=== PATIENT | male | born 1945 | race Caucasian/White ===

== ENCOUNTER 2019-09-19 15:35 | Outpatient (CLI) | payer MEDICARE, OTHER, SELFPAY ==
--- NOTE | 2019-10-06 12:58 | ONC FU_ITS ---
Dr. Bourgeois Patient Follow-Up Note Patient: Israel Fields Unit #: [id number]: 1945 Dicatated By: Clifton Bourgeois M.D.Date of Visit:Sep 19, 2019 Onc Med Follow-up/Prog Note Chief Complaint: Anemia/myeloma. History of Present Illness: This is a 73 year-old man with IgA kappa myeloma. I had seen him initially in August 2014. At that time he was mildly anemic with hemoglobin 10.5 g. He had significantly elevated sedimentation rate. He also had chronic kidney disease, and at the time I was concerned about the possibility of myeloma. He was scheduled to have further evaluation, but he ended up being admitted to the hospital with acute pancreatitis. He was transferred to [facility] in [place]. He completed evaluation there, including bone marrow aspiration/biopsy as well as a lung biopsy. At that time it was felt to be asymptomatic, and he was just followed on observation. I had seen him again on 03/23/2016. Review of his lab reports in [facility] revealed a drop in the hemoglobin to 9.7 g in June 2015. By November 2015 it was down to 8.8 g. A more recent CBC, from 03/04/2016, showed his hemoglobin at 8.3 g with white blood cell count 8300 and platelet count 106,000. The red cell indices were slightly macrocytic. Chem profile at that time showed stable renal function with BUN 21 and creatinine 1.5 mg/dL. Serum iron studies show transferrin saturation 34.6% with ferritin elevated at 558 ng/mL. His total protein was elevated at 9.5 g/dL with albumin 3.2 g/dL and calculated serum globulin 6.3 g/dL. Subsequent protein electrophoresis showed an IgA kappa monoclonal protein quantitating at 2.14 g/dL. Beta-2 microglobulin was just mildly elevated at 0.660 mg/dL. Sedimentation rate was greater than 120 mm/hour. Skeletal survey showed numerous lytic foci in the calvarium, but there were no other discrete myelomatous lesions noted. There were degenerative changes in the spine, particularly at C4-C5. He began a course of treatment with Velcade, Revlimid, and dexamethasone, cycle 1 day 1 on 04/28/2016. The Velcade was administered weekly with Revlimid administered on a day schedule. Cycle 2 began on 05/26/2016, and cycle 3 on 06/16/2016. His M protein at that point had declined to 0.63 g/dL compared to baseline 2.38 g/dL. I had seen him for a scheduled visit on 06/23/2016. He was at day 8 of his third cycle. At that time he was having significant abdominal pain, and he was found to have recurrent acute pancreatitis. The illness improved with conservative management. He was then able to continue with his 4th cycle of treatment on 06/30/2016. He began his sixth cycle of treatment on 08/11/2016. His protein electrophoresis at that point showed his IgA kappa M protein stable at 0.60 g/dL and his IgG kappa M protein stable at 0.23 g/dL. A CT angiogram of the chest performed at [facility] on 09/04/2016 showed no evidence of pulmonary embolus or dissection. There was diffuse calcified atherosclerotic coronary artery disease. There was approximately 50-60% stenosis of the left common carotid artery origin and 33% stenosis of the left subclavian artery origin. As of his follow-up visit on 09/08/2016 he had completed 6 cycles of treatment. His serum protein electrophoresis had a normal pattern. There was no monoclonal protein detected by immunofixation electrophoresis. The free light chain assay showed elevated free kappa light chain at 50.85 mg/L with lambda light chain 18.11 mg/L, and the kappa/lambda ratio elevated at 2.81. He continued with cycle 7 of Velcade/Revlimid/dexamethasone. He began his 8 cycles of treatment on 09/29/2016. His protein electrophoresis at that time again showed a normal pattern with no evidence of monoclonal protein. He did proceed with a 9th cycle of treatment on 10/27/2016. His repeat protein electrophoresis on 12/21/2016 showed a normal pattern with no monoclonal protein detected. The free light chain assay did show elevated kappa free light chain at 66.54 mg/L with the kappa/lambda ratio elevated at 2.28. At that point, his treatment was transitioned to maintenance Revlimid at 10 mg daily. On 04/26/2017 he was admitted to the hospital with recurrence of acute pancreatitis, and he was admitted again with acute pancreatitis on 05/10/2017. On both occasions he improved with IV fluids and conservative management. He did stop his treatment at that time. I had then seen him for a followup visit on 06/15/2017. His protein electrophoresis at that time showed no change in the monoclonal protein, and I did have him restart maintenance Revlimid at 10 mg daily. I had seen him for a followup visit on 10/12/2017. He continued to complain of weakness/fatigue and poor appetite. He also complained of having diarrhea. He was just mildly anemic. His protein electrophoresis showed no detectable monoclonal protein. In the absence of any evidence of disease progression, he continued maintenance Revlimid with the dosage reduced to 5 mg daily. On 12/02/2017 he had presented to the [place] emergency room with increasing weakness. His CBC showed hemoglobin down slightly to 10.6 with WBC mildly elevated at 12,000 and platelet count normal at 202,000. His chem profile showed elevated BUN at 29 mg/dL with creatinine stable at 1.06 mg/dL. Amylase and lipase were normal. In the absence of any apparent acute illness he was given IV hydration and discharged home. He was seen here the following day. He had stopped his Revlimid 4 days earlier as he had run out of medication. He was given additional IV hydration. I had him start on 10 mg of prednisone bid, and I advised him to remain off the Revlimid. I had seen him for a followup visit on 04/19/2018. At that point he continued to have fairly marginal performance status. In the absence of any evidence of progression of the myeloma, he was recommended to just continue on observation/expectant management. He has multiple underlying medical illnesses including hypertension, hyperlipidemia, chronic kidney disease, COPD, obstructive sleep apnea, GERD, and degenerative arthritis. He also has anxiety/depression and a history of obsessive-compulsive disorder. He has a [id number] smoking history. He had quit smoking at age 63, but he then started again sometime around March 2016. He is still smoking one pack of cigarettes daily. INTERIM HISTORY: He was lost to follow-up after his visit in March 2018. The reasons for that are unclear. 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 The reported differential considerations included a malignant neoplastic process or chronic infectious process. He underwent surgery in [place]. Those records are not available. He is seen now for a follow-up visit. His indicates that he has been getting weaker and that he has been slowing down. His memory has been getting progressively worse. He has very activity limited. At times it is hard for him to walk. His says that it can take up to 45 minutes or an hour for him to get dressed. His appetite is not good. He has lost weight. He has not had fever. He does have sweating at night. He has shortness of breath. She says his breathing is getting worse. He has constant cough. He is smoking 1 pack of cigarettes daily. He has not been having chest pain. He has been having nausea, and he has diarrhea. His says that he voids constantly. He has been having pain in his lower back and in his hips and legs. At times it is severe enough that he yells out. Medications: Acetaminophen 1 - 2 Tablet (of 325 mg) Oral daily PRN, Anti-Diarrheal 2 Capsule (of 2 mg) Oral daily, Aspirin 1 (325 mg) Tablet Oral daily, D3-1000 2 Tablet (of 25 mcg ) Oral daily, Omeprazole 1 Tablet (of 40 mg) Capsule Delayed Release Oral b.i.d., Potassium 3 Tablet (of 99 mg) Oral daily, Sertraline HCl 1 (100 mg) Tablet Oral daily Allergies: No Known Allergies. Review of Systems: Constitutional - He is getting weaker and he has been slowing down. He has limited activity. At times it is hard for him to walk. His says that it can take up to 45 minutes or an hour for him to get dressed. Appetite is poor. He has lost weight. No fever or chills. He has been having night sweating. ECOG score is 3, ENMT - He has sinus congestion/drainage. No mouth sores. No sore throat or difficulty swallowing, Hematologic/Lymphatic - No abnormal bruising or bleeding, Respiratory - He has shortness of breath. His breathing is getting worse. He coughs a lot. He is smoking 1 pack of cigarettes daily. No pleuritic pain or hemoptysis, Cardiovascular - No angina pain. No palpitations, Gastrointestinal - He has been having nausea, but no vomiting. His acid reflux is managed with omeprazole. He has been having diarrhea. No blood in the stool or black stools, Genitourinary (M) - His says that he urinates constantly. No dysuria or hematuria. No incontinence, Musculoskeletal - He has been having pain in his lower back, hips, and legs. At times it is severe enough that he yells out, Neurologic - No headache. He has dizziness. His memory has been getting progressively worse. He has no numbness/paresthesia or other focal neurologic symptoms, Psychiatric - No anxiety or depression. He has insomnia. Vital Signs: Performed on Sep 19, 2019 15:43 Height - 68.00 in Weight - 132 lbs (LOW) BSA - 1.71 sq.m BMI - 20.07 Temperature - 96.9 F (LOW) Pulse - 88 /min Respiration - 17 /min BP - 120/78 mm(hg) O2 Sat - 97 % Pain - 4 Physical Examination: Constitutional - He appears generally weak and chronically ill, Eyes - Sclerae nonicteric. Conjunctivae clear, ENMT - Mouth is very dry. There are no lesions noted in the oral cavity, Hematologic/Lymphatic - No cervical, clavicular, or axillary adenopathy, Respiratory - Lungs show diminished air movement bilaterally. There are a scattered rales present, more prominent on the left. There is no wheezing, Cardiovascular - Heart rhythm is regular. There is no murmur, gallop or rub noted, Abdomen - Mildly distended. Liver and spleen are not enlarged. There is no abdominal mass or ascites noted. There is no inguinal adenopathy, Extremities - No edema, Neurologic - No focal neurologic deficits noted. Impression: 1. Patient with IgA kappa myeloma. It was felt to be asymptomatic at initial diagnosis in 2014. By February 2016 he had become symptomatic with anemia and 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. 2. He began a course of treatment with Velcade, Revlimid,and dexamethasone on 04/28/2016. 3. He had a hospital admission for acute pancreatitis in September 2014. 4. As of 10/27/2016 he began his 9th cycle of treatment with Velcade/Revlimid/dexamethasone. His repeat protein electrophoresis on 12/21/2016 showed no monoclonal protein, and at that point his treatment was transitioned to maintenance Revlimid 10 mg daily. The dosage was later reduced to 5 mg daily. 5. His treatment was stopped in November 2017 due to declining performance. His other medical illnesses include: 6. Hypertension. 7. Hyperlipidemia. 8. Chronic kidney disease. 9. COPD. 10. Obstructive sleep apnea. 11. GERD. 12. Degenerative arthritis. 13. He has history of obsessive compulsive disorder along with chronic anxiety and depression. He was lost to follow-up after his visit in March 2018. In September 2018 he had evidence of bony destruction of the left mandible. He underwent surgery for it in [facility]. Those records were not made available to me. Since his visit in March 2018 there has been further decline in his performance status. He also has had significant memory loss. It is uncertain to what extent any of his current problems may be related to myeloma and/or anemia. Plan: He will be scheduled for laboratory studies to include CBC, CMP, sed rate, serum iron studies, B12 and folate levels, LDH level, TSH level, SPEP, quantitative immunoglobulin levels, free light chain assay and 24 hr urine protein electrophoresis. He also will be scheduled for a skeletal survey. He will have further evaluation as indicated. In the meantime, he is advised to stop the oral iron supplement. Signed By: Clifton Bourgeois M.D. <<Signature on File>>
== END 2019-09-19 15:36 | disposition home or self-care (01) ==
LOC: STFRANCIS 09-20 14:27
PROVIDERS: Visit Provider Internal Medicine Medical Oncology
DX: C90.00 Multiple myeloma not having achieved remission (principal); I12.9 Hypertensive chronic kidney disease with stage 1 through stage 4 chronic kidney disease, or unspecified chronic kidney disease; E78.5 Hyperlipidemia, unspecified; N18.9 Chronic kidney disease, unspecified; J44.9 Chronic obstructive pulmonary disease, unspecified; G47.33 Obstructive sleep apnea (adult) (pediatric); K21.9 Gastro-esophageal reflux disease without esophagitis; M19.90 Unspecified osteoarthritis, unspecified site; F41.8 Other specified anxiety disorders; F42.9 Obsessive-compulsive disorder, unspecified; F17.210 Nicotine dependence, cigarettes, uncomplicated; D64.9 Anemia, unspecified; R53.83 Other fatigue; M89.8X9 Other specified disorders of bone, unspecified site; Z79.899 Other long term (current) drug therapy
CPT/HCPCS: 99214

== ENCOUNTER 2019-10-09 13:52 | Outpatient (CLI) | payer MEDICARE, OTHER, SELFPAY ==
[2019-10-09] MEDS: sodium chloride 0.9% 250 ML 75 ML IV (14:45)
== END 2019-10-09 13:53 | disposition home or self-care (01) ==
LOC: ONCMED 13:55
PROVIDERS: PCP Nurse Practitioner Family; Visit Provider Internal Medicine Medical Oncology
DX: C90.00 Multiple myeloma not having achieved remission (principal); D64.9 Anemia, unspecified
CPT/HCPCS: 96365; J1439; J7050

== ENCOUNTER 2019-10-16 13:56 | Outpatient (CLI) | payer MEDICARE, OTHER, SELFPAY ==
[2019-10-16] MEDS: sodium chloride 0.9% 250 ML 75 ML IV (15:31)
== END 2019-10-16 13:57 | disposition home or self-care (01) ==
LOC: ONCMED 14:01
PROVIDERS: PCP Nurse Practitioner Family; Visit Provider Internal Medicine Medical Oncology
DX: C90.00 Multiple myeloma not having achieved remission (principal)
CPT/HCPCS: 96365; J1439; J7050

== ENCOUNTER 2019-11-14 06:00 | Outpatient (CLI) | payer MEDICARE, OTHER, SELFPAY ==
--- NOTE | 2019-11-16 12:05 | ONC FU_ITS ---
Dr. Bourgeois Patient Follow-Up Note Patient: Israel Fields Unit #: [id number]: 1945 Dicatated By: Clifton Bourgeois M.D.Date of Visit:Nov 14, 2019 Onc Med Follow-up/Prog Note Chief Complaint: Anemia/myeloma. History of Present Illness: This is a 73 year-old man with IgA kappa myeloma. I had seen him initially in August 2014. At that time he was mildly anemic with hemoglobin 10.5 g. He had significantly elevated sedimentation rate. He also had chronic kidney disease, and at the time I was concerned about the possibility of myeloma. He was scheduled to have further evaluation, but he ended up being admitted to the hospital with acute pancreatitis. He was transferred to [facility] in [place]. He completed evaluation there, including bone marrow aspiration/biopsy as well as a lung biopsy. At that time it was felt to be asymptomatic, and he was just followed on observation. I had seen him again on 03/23/2016. Review of his lab reports in [facility] revealed a drop in the hemoglobin to 9.7 g in June 2015. By November 2015 it was down to 8.8 g. A more recent CBC, from 03/04/2016, showed his hemoglobin at 8.3 g with white blood cell count 8300 and platelet count 106,000. The red cell indices were slightly macrocytic. Chem profile at that time showed stable renal function with BUN 21 and creatinine 1.5 mg/dL. Serum iron studies show transferrin saturation 34.6% with ferritin elevated at 558 ng/mL. His total protein was elevated at 9.5 g/dL with albumin 3.2 g/dL and calculated serum globulin 6.3 g/dL. Subsequent protein electrophoresis showed an IgA kappa monoclonal protein quantitating at 2.14 g/dL. Beta-2 microglobulin was just mildly elevated at 0.660 mg/dL. Sedimentation rate was greater than 120 mm/hour. Skeletal survey showed numerous lytic foci in the calvarium, but there were no other discrete myelomatous lesions noted. There were degenerative changes in the spine, particularly at C4-C5. He began a course of treatment with Velcade, Revlimid, and dexamethasone, cycle 1 day 1 on 04/28/2016. The Velcade was administered weekly with Revlimid administered on a day schedule. Cycle 2 began on 05/26/2016, and cycle 3 on 06/16/2016. His M protein at that point had declined to 0.63 g/dL compared to baseline 2.38 g/dL. I had seen him for a scheduled visit on 06/23/2016. He was at day 8 of his third cycle. At that time he was having significant abdominal pain, and he was found to have recurrent acute pancreatitis. The illness improved with conservative management. He was then able to continue with his 4th cycle of treatment on 06/30/2016. He began his sixth cycle of treatment on 08/11/2016. His protein electrophoresis at that point showed his IgA kappa M protein stable at 0.60 g/dL and his IgG kappa M protein stable at 0.23 g/dL. A CT angiogram of the chest performed at [facility] on 09/04/2016 showed no evidence of pulmonary embolus or dissection. There was diffuse calcified atherosclerotic coronary artery disease. There was approximately 50-60% stenosis of the left common carotid artery origin and 33% stenosis of the left subclavian artery origin. As of his follow-up visit on 09/08/2016 he had completed 6 cycles of treatment. His serum protein electrophoresis had a normal pattern. There was no monoclonal protein detected by immunofixation electrophoresis. The free light chain assay showed elevated free kappa light chain at 50.85 mg/L with lambda light chain 18.11 mg/L, and the kappa/lambda ratio elevated at 2.81. He continued with cycle 7 of Velcade/Revlimid/dexamethasone. He began his 8 cycles of treatment on 09/29/2016. His protein electrophoresis at that time again showed a normal pattern with no evidence of monoclonal protein. He did proceed with a 9th cycle of treatment on 10/27/2016. His repeat protein electrophoresis on 12/21/2016 showed a normal pattern with no monoclonal protein detected. The free light chain assay did show elevated kappa free light chain at 66.54 mg/L with the kappa/lambda ratio elevated at 2.28. At that point, his treatment was transitioned to maintenance Revlimid at 10 mg daily. On 04/26/2017 he was admitted to the hospital with recurrence of acute pancreatitis, and he was admitted again with acute pancreatitis on 05/10/2017. On both occasions he improved with IV fluids and conservative management. He did stop his treatment at that time. I had then seen him for a followup visit on 06/15/2017. His protein electrophoresis at that time showed no change in the monoclonal protein, and I did have him restart maintenance Revlimid at 10 mg daily. I had seen him for a followup visit on 10/12/2017. He continued to complain of weakness/fatigue and poor appetite. He also complained of having diarrhea. He was just mildly anemic. His protein electrophoresis showed no detectable monoclonal protein. In the absence of any evidence of disease progression, he continued maintenance Revlimid with the dosage reduced to 5 mg daily. On 12/02/2017 he had presented to the [place] emergency room with increasing weakness. His CBC showed hemoglobin down slightly to 10.6 with WBC mildly elevated at 12,000 and platelet count normal at 202,000. His chem profile showed elevated BUN at 29 mg/dL with creatinine stable at 1.06 mg/dL. Amylase and lipase were normal. In the absence of any apparent acute illness he was given IV hydration and discharged home. He was seen here the following day. He had stopped his Revlimid 4 days earlier as he had run out of medication. He was given additional IV hydration. I had him start on 10 mg of prednisone bid, and I advised him to remain off the Revlimid. I had seen him for a followup visit on 04/19/2018. At that point he continued to have fairly marginal performance status. In the absence of any evidence of progression of the myeloma, he was recommended to just continue on observation/expectant management. He has multiple underlying medical illnesses including hypertension, hyperlipidemia, chronic kidney disease, COPD, obstructive sleep apnea, GERD, and degenerative arthritis. He also has anxiety/depression and a history of obsessive-compulsive disorder. He has a [id number] smoking history. He had quit smoking at age 63, but he then started again sometime around March 2016. He is still smoking one pack of cigarettes daily. INTERIM HISTORY: He was lost to follow-up after his visit in March 2018. The reasons for that were unclear. 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 The reported differential considerations included a malignant neoplastic process or chronic infectious process. He underwent surgery in [place]. Those records were not available. I had seen him for a follow-up visit on 09/19/2019. He appeared to have had further decline in his performance status, and by that point he was also having significant issues with memory loss. His laboratory studies showed only mild anemia, hemoglobin 11 g. The protein electrophoresis showed 2 monoclonal bands, one quantitating at 1.17 g/dL and the other at 0.62 g/dL. The quantitative immunoglobulin levels were all low with IgG 685 mg/dL, IgA 19 mg/dL, and IgM <5 mg/dL. Sed rate was significantly elevated at 101 mm/hour. B12 level was normal at 387 pg/mL. The serum iron was low at 5 mcg/dL and the ferritin was also low at 4.7 ng/mL, consistent with iron deficiency. I had requested a 24-hour urine protein electrophoresis, but his was never able to get the specimen collected. However, with evidence of iron deficiency, he was given parenteral iron replacement with 2 infusions of Injectafer. He tolerated it without adverse effects. His skeletal survey on 10/03/2017 showed no significant change compared to a prior study from 2018. Multiple small lucent changes predominantly within the calvarium appeared stable. There were degenerative changes in the thoracic and lumbar spine, but there were no lytic lesions noted. He is seen now for a follow-up visit. His main complaint is that the has been having more severe pain in the lower back area. He does get some benefit with the pain medication, but he is having to take it on a regular basis. He has very limited activity, and he is mostly confined to bed or chair. His ECOG score is 3. He has good appetite. He has no fever or night sweats. He is short of breath with activity. He has a cough. He has had some pain in the left rib cage after a recent fall. He otherwise does not have chest pain. He has no GI complaints. He has frequent urination. In addition to the back pain, he also complains that his legs ache. He does not complain of headache. He does have dizziness/lightheadedness, and his 's says that he is also shaky. He does have some difficulty sleeping. Medications: Acetaminophen 1 - 2 Tablet (of 325 mg) Oral daily PRN, Anti-Diarrheal 2 Capsule (of 2 mg) Oral daily, Aspirin 1 (325 mg) Tablet Oral daily, D3-1000 2 Tablet (of 25 mcg ) Oral daily, Omeprazole 1 Tablet (of 40 mg) Capsule Delayed Release Oral b.i.d., Potassium 3 Tablet (of 99 mg) Oral daily, Sertraline HCl 1 (100 mg) Tablet Oral daily Allergies: No Known Allergies. Review of Systems: Constitutional - His energy level is low. 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 His appetite is good, but his weight is down a few pounds from last visit. No fever, chills, hot flashes, or night sweats. ECOG score is 3, ENMT - He has sinus congestion/drainage. No mouth sores. No sore throat or difficulty swallowing, Hematologic/Lymphatic - He bruises easily, Respiratory - He gets short of breath with activity. He has a cough. No pleuritic pain or hemoptysis, Cardiovascular - No angina pain. No palpitations, Gastrointestinal - No nausea or vomiting. No heartburn or acid reflux. No diarrhea or constipation. No blood in the stool or black stools, Genitourinary (M) - No dysuria or hematuria. No urinary frequency. No urgency or incontinence, Musculoskeletal - He has lower back pain which has worsened. He has some rib pain from a recent fall, Integumentary - No skin complications, Neurologic - No headache. He has some dizziness/light headeness. No numbness/paresthesias or other focal neurologic symptoms, Psychiatric - No anxiety or depression. No insomnia. Vital Signs: Performed on Nov 14, 2019 11:37 Height - 68.00 in Weight - 129 lbs (LOW) BSA - 1.70 sq.m BMI - 19.61 Temperature - 97.5 F (LOW) Pulse - 105 /min (HIGH) Respiration - 22 /min BP - 133/88 mm(hg) O2 Sat - 99 % Pain - 9 Physical Examination: Constitutional - He appears generally weak and chronically ill, Eyes - Sclerae nonicteric. Conjunctivae clear, ENMT - Mouth is dry. There are no lesions noted in the oral cavity, Hematologic/Lymphatic - No cervical, clavicular, or axillary adenopathy, Respiratory - Lungs sound clear with diminished air movement bilaterally, Cardiovascular - Heart rhythm is regular. There is no murmur, gallop, or rub noted, Abdomen - Mildly distended but soft. Liver and spleen are not enlarged. There is no abdominal mass or ascites noted. There is no inguinal adenopathy, Extremities - No edema, Neurologic - No focal neurologic deficits noted. Lab/Imaging: Test performed on Nov 13, 2019 15:55 Ferritin 1791 ng/mL % Iron Saturation 37 % Iron, Total 60 mcg/dL TIBC 163 mcg/dL WBC 7.7 10^9/L RBC 3.16 10^12/L HGB 10.8 g/dL HCT 33.7 % MCV 106.6 fl MCH 34.2 pg MCHC 32 g/dL RDW 15.9 % Platelet Count 233 10^9/L MPV 10.5 fL Neutrophils (Gran) 5.22 10^9/L Lymphocytes 1.617 10^9/L Monocytes 0.77 10^9/L Eosinophils 0.077 10^9/L Basophils 0 10^9/L Impression: 1. Patient with IgA kappa myeloma. It was felt to be asymptomatic at initial diagnosis in 2014. By February 2016 he had become symptomatic with anemia and 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. 2. He began a course of treatment with Velcade, Revlimid,and dexamethasone on 04/28/2016. 3. He had a hospital admission for acute pancreatitis in September 2014. 4. As of 10/27/2016 he began his 9th cycle of treatment with Velcade/Revlimid/dexamethasone. His repeat protein electrophoresis on 12/21/2016 showed no monoclonal protein, and at that point his treatment was transitioned to maintenance Revlimid 10 mg daily. The dosage was later reduced to 5 mg daily. 5. His treatment was stopped in November 2017 due to declining performance. His other medical illnesses include: 6. Hypertension. 7. Hyperlipidemia. 8. Chronic kidney disease. 9. COPD. 10. Obstructive sleep apnea. 11. GERD. 12. Degenerative arthritis. 13. He has history of obsessive compulsive disorder along with chronic anxiety and depression. He was lost to follow-up after his visit in March 2018. In September 2018 he had evidence of bony destruction of the left mandible. He underwent surgery for it in [facility]. Those records were not made available to me. Subsequent to his visit in March 2018 there was further decline in his performance status. He also developed significant memory loss. His laboratory studies in August 2019 showed mild anemia, hemoglobin 11 g. His protein electrophoresis showed 2 monoclonal bands, one quantitating at 1.17 g/dL and the other at 0.62 g/dL. The quantitative immunoglobulin levels were all low. He also did have evidence of iron deficiency. He was given parenteral iron replacement with Injectafer, but with no improvement in the anemia. He has since then continued to have significant pain in the lower back area, and he continues have very marginal performance status. His repeat skeletal survey showed no changes compared to a prior study in September 2017. In particular, there were no lytic lesions noted in the thoracic or lumbar spine. At this point it is still uncertain to what extent his myeloma may be symptomatic. Plan: I will request additional laboratory studies including a repeat serum protein electrophoresis, serum free light chain assay, and comprehensive metabolic profile. Depending on the renal function, I will schedule further imaging of the lumbar spine with either CT or MRI, as he would potentially benefit with palliative radiation if he were confirmed to have myelomatous involvement in that area. In the meantime, I will have him start fentanyl 25 mcg/h and he will be given immediate release oxycodone 10 mg up to 4 times daily as needed for pain. He indicates that he is interested in pursuing further treatment for the myeloma, so I will not check on the availability of an oral regimen with lenalidomide, ixazomib, and dexamethasone. Signed By: Clifton Bourgeois M.D. <<Signature on File>>
== END 2019-11-14 06:01 | disposition home or self-care (01) ==
LOC: ONCMED 13:48
PROVIDERS: PCP Nurse Practitioner Family; Visit Provider Internal Medicine Medical Oncology
DX: C90.00 Multiple myeloma not having achieved remission (principal); N18.9 Chronic kidney disease, unspecified; I25.10 Atherosclerotic heart disease of native coronary artery without angina pectoris; I12.9 Hypertensive chronic kidney disease with stage 1 through stage 4 chronic kidney disease, or unspecified chronic kidney disease; E78.5 Hyperlipidemia, unspecified; J44.9 Chronic obstructive pulmonary disease, unspecified; G47.33 Obstructive sleep apnea (adult) (pediatric); K21.9 Gastro-esophageal reflux disease without esophagitis; M19.90 Unspecified osteoarthritis, unspecified site; F42.8 Other obsessive-compulsive disorder; F42.9 Obsessive-compulsive disorder, unspecified; F17.210 Nicotine dependence, cigarettes, uncomplicated; D50.9 Iron deficiency anemia, unspecified; Z79.899 Other long term (current) drug therapy; Z79.891 Long term (current) use of opiate analgesic
CPT/HCPCS: 99214

== ENCOUNTER 2019-12-14 20:18 | Inpatient (IN) | payer MEDICARE, OTHER, SELFPAY ==
[2019-12-14 20:21] VITALS: BP 140/80; PULSE 85; RESP 18; TEMP 36.6; O2SAT 96; BMI 21.1
--- NOTE | 2019-12-14 20:25 | XR_ITS ---
WS: [id number] PORTABLE CHEST HISTORY: cough COMPARISON: 04/28/2016 Mild volume loss in the LEFT lung is new. Increased interstitial thickening is coarsened throughout t he LEFT lung. Mild fibrotic changes in the periphery of the RIGHT upper lobe. No focal pneumonia. No pleural effusion or pneumothorax. Cardiac size: Normal. Mediastinum/Aorta: Ectatic thoracic aorta. Partial calcification of the arch. Degenerative changes at the glenohumeral joints and AC joints. XR/XR chest 1V portable [id number] IMPRESSION: 1. Volume loss and changes of pulmonary fibrosis throughout the LEFT lung and at the RIGHT apex. 2. No pneumonia. 3. Partially calcified aorta.
[2019-12-14] MEDS: sodium chloride 0.9% 1,000 ML 999 ML IV (20:40)
[2019-12-14 20:58] LABS: Ketone (Acetest) Serum Negative (Negative)
[2019-12-14 21:00] LABS: Basophils % 0.2 %; Eosinophils # 0.1 10^3/uL (0.0-0.8); Eosinophils % 1.5 %; Hematocrit 30.9 % (42.0-52.0); Hemoglobin 9.5 g/dL (11.7-16.6); Lymphocytes # 1.3 10^3/uL (0.8-4.8); Lymphocytes % 21.4 %; Mean Corpuscular HGB Conc 30.7 g/dL (30.0-36.0); Mean Corpuscular Hemoglobin 34.7 pg (28.0-34.0); Mean Corpuscular Volume 112.8 fL (80-94); Mean Platelet Volume 10.8 fL (7.4-10.4); Monocytes # 0.7 10^3/uL (0.2-0.9); Monocytes % 11.4 %; Neutrophils % 65.2 %; Nucleated Red Blood Cells % 0 %; Platelet Count 187 10^3/cmm (130-400); Red Blood Count 2.74 10^6/uL (4.1-5.3); Red Cell Distribution Width 15.2 % (12.1-15.1); White Blood Count 6.1 10^3/uL (4.0-10.0)
--- NOTE | 2019-12-14 21:05 | W.ED.GENADLT ---
HPI - General Adult General: Chief complaint: General Medical Stated complaint: CNACER/ ALHEIMERS Time Seen by Provider: 12/14/19 20:21 History of Present Illness: HPI narrative: Israel is a 74-year-old male who comes in via EMS with report of not eating or drinking for the last week. His was concerned that he was dehydrated and called EMS to have him brought in for evaluation. The patient has dementia and states that he does not know why he is here. He states he feels fine. He denies any pain. When asked if he wanted something to eat and drink he said yes we offered him a sandwich and he accepted. The patient does seem to be somewhat confused. He does not appear to be in any distress or any pain. Review of Systems General: Reports: ROS unobtainable due to mental status (See HPI) PFS ED PFSH: Medical History Alzheimer disease Multiple myeloma Social History Smoking and tobacco status: current every day smoker Physical Exam Const: COMMON NORMALS: no apparent distress, no limitations, healthy appearing and well nourished EXAM LIMITATIONS: no altered mental status GENERAL APPEARANCE: cooperative, well kempt and well developed ORIENTATION/CONSCIOUSNESS: Yes awake HENMT: COMMON NORMALS: normocephalic, head/scalp atraumatic, hearing grossly normal bilaterally, external ears normal, EAC's normal, external nose normal and moist oral mucous membranes HEAD & SCALP: normal to inspection, normocephalic and atraumatic FACE & SINUS: normal facial exam and face symmetric NOSE: external nose normal and nares normal EXTERNAL EAR: Yes external ears normal EXTERNAL AUDITORY CANAL: EAC's normal MOUTH: oral and palatal mucosa normal and tongue normal Eye: COMMON NORMALS: PERRL, EOMs intact bilaterally, conjunctivae normal and no scleral icterus GENERAL EYE: normal appearance of both eyes and normal light reflex CONJUNCTIVA: Yes conjunctivae normal SCLERA: sclerae normal CORNEA: Yes corneas normal PUPIL: Yes PERRL DIRECT OPHTHALMOSCOPY: Yes normal light reflex Neck/C-Spine: COMMON NORMALS: full ROM, no lymphadenopathy, supple, no meningeal signs and no JVD GENERAL: Yes normal visual inspection and Yes trachea midline CERVICAL SPINE: Yes cervical ROM normal Chest: COMMONS NORMALS: inspection of chest normal and palpation of chest normal Resp: COMMON NORMALS: normal respiratory effort, no retractions, no use of accessory muscles and clear to auscultation bilaterally EFFORT & INSPECTION: Yes able to speak in complete sentences AUSCULTATION: clear to auscultation bilaterally Cardio: COMMON NORMALS: no JVD, regular rate, regular rhythm, S1 normal heart sound, S2 normal heart sound, no gallops, no clicks, no murmurs and no rub JUGULAR VENOUS DISTENTION: no JVD RATE: regular rate RHYTHM: regular rhythm HEART SOUNDS: S1 normal and S2 normal GI: COMMON NORMALS: soft to palpation, non-tender, no hepatosplenomegaly and no masses INSPECTION: Yes normal to inspection PALPATION: Yes soft and Yes no hepatosplenomegaly : COMMON NORMALS: Yes no CVA tenderness BLADDER/KIDNEY EXAM: Yes no CVA tenderness Back/Pelvis: COMMON NORMALS: no CVA tenderness, thoracic and lumbar spine normal to inspection, no thoracic nor lumbar tenderness and thoraco-lumbar ROM normal Extremity: COMMON NORMALS: normal to inspection, full ROM, normal capillary refill, no joint enlargement, no clubbing, cyanosis or edema and no calf tenderness Neuro: COMMON NORMALS: CN's II-XII intact bilaterally, moves all extremities, no focal motor deficits and no sensory deficits noted MENINGEAL SIGNS: Yes no meningeal signs Psych: COMMON NORMALS: mental status grossly normal, thought process normal, cooperative, affect normal, speech normal and activity/motor behavior normal APPEARANCE: Yes well kempt SPEECH: Yes normal speech THOUGHT PROCESS: normal thought process Skin: COMMON NORMALS: no rashes or lesions noted, skin turgor normal, no jaundice, no petechiae and no mottling GENERAL SKIN EXAM: no rashes or lesions noted and turgor normal Course Vital Signs: Vital signs: Vital Signs Temperature 97.8 F 12/14/19 20:21 Pulse Rate 78 12/14/19 21:40 Respiratory Rate 18 12/14/19 20:21 Blood Pressure 115/72 12/14/19 21:40 Pulse Oximetry 96 12/14/19 20:21 MDM - General Adult MDM Narrative: Medical decision making narrative: Patient has eaten and had something to drink here. He does not have any pain. I reviewed the case with Dr. Bourgeois who thinks the patient should be admitted for further hydration. He will see the patient in consult. I reviewed the case in full with Dr. Castro and he is agreeable to admission as well. Patient's chest x-ray has been covered for any possible pneumonia and I will add a head CT as the patient has a history of lytic lesions from his multiple myeloma. Further care will be dictated by Dr. Castro. Lab Data: Attestation: I reviewed the patient's lab results. Labs: Lab Results 12/14/19 12/14/19 12/14/19 Range/Units 20:33 20:33 20:33 WBC 6.1 (4.0-10.0) 10^3/ uL RBC 2.74 L (4.1-5.3) 10^6/u L Hgb 9.5 L (11.7-16.6) g/dL Hct 30.9 L (42.0-52.0) % MCV 112.8 H (80-94) fL MCH 34.7 H (28.0-34.0) pg MCHC 30.7 (30.0-36.0) g/dL RDW 15.2 H (12.1-15.1) % Plt Count 187 (130-400) 10^3/c mm MPV 10.8 H (7.4-10.4) fL Neut % (Auto) 65.2 % Lymph % (Auto) 21.4 % Ferry % (Auto) 11.4 % Eos % (Auto) 1.5 % Baso % (Auto) 0.2 % Neut # (Auto) 4.0 (1.8-7.7) 10^3/u L Lymph # (Auto) 1.3 (0.8-4.8) 10^3/u L Ferry # (Auto) 0.7 (0.2-0.9) 10^3/u L Eos # (Auto) 0.1 (0.0-0.8) 10^3/u L Baso # (Auto) 0.0 (0.0-0.1) 10^3/u L Nucleated RBC % (a uto) 0 % Nucleated RBCs # 0.0 /100WBC Sodium 136 (136-145) mmol/L Potassium 4.1 (3.5-5.1) mmol/L Chloride 102 (98-107) mmol/L Carbon Dioxide 18 L (22-29) mmol/L Anion Gap 20.1 H (5-19) BUN 34 H (8-23) mg/dL Creatinine 1.1 (0.7-1.2) mg/dL Glucose 97 (65-115) mg/dL Calculated Osmolal ity 279 L (285-295) mOsm/k g Lactic Acid 0.7 (0.5-2.2) mmol/L Calcium 9.5 (8.5-10.5) mg/dL Magnesium 1.8 (1.7-2.3) mg/dL Total Bilirubin 0.3 (0.15-1.2) mg/dL AST 24 (0-40) U/L ALT 15 (0-41) U/L Alkaline Phosphata se 104 (40-130) IU/L Troponin T Baselin e (0-15) ng/mL Troponin T 120 Min [place] (0-15) ng/mL Delta Troponin T (0-10) ABS# Total Protein 7.5 (6.6-8.7) g/dL Albumin 3.2 L (3.5-5.2) g/dL Globulin 4.3 (1.3-4.6) g/dL Lipase 45 (13-60) U/L Urine Color (Yellow) Urine Appearance (CLEAR) Urine pH (5-7) Ur Specific Gravit y (1.005-1.030) Urine Protein (Negative) Urine Glucose (UA) (Normal) Urine Ketones (Negative) Urine Blood (Negative) Urine Nitrate (Negative) Urine Bilirubin (NEGATIVE) Urine Urobilinogen (Negative) mg/dL Ur Leukocyte Leah ase (Negative) Urine RBC (0-2) /hpf Urine WBC (0-5) /hpf Ur Squamous Epith Cells (0-5) Urine Bacteria (NONE) Urine Mucus Serum Ketones (Negative) 12/14/19 12/14/19 12/14/19 Range/Units 20:33 20:33 21:55 WBC (4.0-10.0) 10^3/ uL RBC (4.1-5.3) 10^6/u L Hgb (11.7-16.6) g/dL Hct (42.0-52.0) % MCV (80-94) fL MCH (28.0-34.0) pg MCHC (30.0-36.0) g/dL RDW (12.1-15.1) % Plt Count (130-400) 10^3/c mm MPV (7.4-10.4) fL Neut % (Auto) % Lymph % (Auto) % [place] % (Auto) % Eos % (Auto) % Baso % (Auto) % Neut # (Auto) (1.8-7.7) 10^3/u L Lymph # (Auto) (0.8-4.8) 10^3/u L [place] # (Auto) (0.2-0.9) 10^3/u L Eos # (Auto) (0.0-0.8) 10^3/u L Baso # (Auto) (0.0-0.1) 10^3/u L Nucleated RBC % (a uto) % Nucleated RBCs # /100WBC Sodium (136-145) mmol/L Potassium (3.5-5.1) mmol/L Chloride (98-107) mmol/L Carbon Dioxide (22-29) mmol/L Anion Gap (5-19) BUN (8-23) mg/dL Creatinine (0.7-1.2) mg/dL Glucose (65-115) mg/dL Calculated Osmolal ity (285-295) mOsm/k g Lactic Acid (0.5-2.2) mmol/L Calcium (8.5-10.5) mg/dL Magnesium (1.7-2.3) mg/dL Total Bilirubin (0.15-1.2) mg/dL AST (0-40) U/L ALT (0-41) U/L Alkaline Phosphata se (40-130) IU/L Troponin T Baselin e 61 H (0-15) ng/mL Troponin T 120 Min [place] (0-15) ng/mL Delta Troponin T (0-10) ABS# Total Protein (6.6-8.7) g/dL Albumin (3.5-5.2) g/dL Globulin (1.3-4.6) g/dL Lipase (13-60) U/L Urine Color Yellow (Yellow) Urine Appearance Clear (CLEAR) Urine pH 5 (5-7) Ur Specific Gravit y 1.020 (1.005-1.030) Urine Protein Neg (Negative) Urine Glucose (UA) Norm (Normal) Urine Ketones Negative (Negative) Urine Blood Neg (Negative) Urine Nitrate Negative (Negative) Urine Bilirubin Neg (NEGATIVE) Urine Urobilinogen Norm (Negative) mg/dL Ur Leukocyte [place] ase Negative (Negative) Urine RBC Rare (0-2) /hpf Urine WBC Rare (0-5) /hpf Ur Squamous Epith Cells Rare (0-5) Urine Bacteria 1+ H (NONE) Urine Mucus 1+ Serum Ketones Negative (Negative) 12/14/19 Range/Units 22:36 WBC (4.0-10.0) 10^3/ uL RBC (4.1-5.3) 10^6/u L Hgb (11.7-16.6) g/dL Hct (42.0-52.0) % MCV (80-94) fL MCH (28.0-34.0) pg MCHC (30.0-36.0) g/dL RDW (12.1-15.1) % Plt Count (130-400) 10^3/c mm MPV (7.4-10.4) fL Neut % (Auto) % Lymph % (Auto) % [place] % (Auto) % Eos % (Auto) % Baso % (Auto) % Neut # (Auto) (1.8-7.7) 10^3/u L Lymph # (Auto) (0.8-4.8) 10^3/u L [place] # (Auto) (0.2-0.9) 10^3/u L Eos # (Auto) (0.0-0.8) 10^3/u L Baso # (Auto) (0.0-0.1) 10^3/u L Nucleated RBC % (a uto) % Nucleated RBCs # /100WBC Sodium (136-145) mmol/L Potassium (3.5-5.1) mmol/L Chloride (98-107) mmol/L Carbon Dioxide (22-29) mmol/L Anion Gap (5-19) BUN (8-23) mg/dL Creatinine (0.7-1.2) mg/dL Glucose (65-115) mg/dL Calculated Osmolal ity (285-295) mOsm/k g Lactic Acid (0.5-2.2) mmol/L Calcium (8.5-10.5) mg/dL Magnesium (1.7-2.3) mg/dL Total Bilirubin (0.15-1.2) mg/dL AST (0-40) U/L ALT (0-41) U/L Alkaline Phosphata se (40-130) IU/L Troponin T Baselin e (0-15) ng/mL Troponin T 120 Min [place] 58.28 H (0-15) ng/mL Delta Troponin T -2.72 L (0-10) ABS# Total Protein (6.6-8.7) g/dL Albumin (3.5-5.2) g/dL Globulin (1.3-4.6) g/dL Lipase (13-60) U/L Urine Color (Yellow) Urine Appearance (CLEAR) Urine pH (5-7) Ur Specific Gravit y (1.005-1.030) Urine Protein (Negative) Urine Glucose (UA) (Normal) Urine Ketones (Negative) Urine Blood (Negative) Urine Nitrate (Negative) Urine Bilirubin (NEGATIVE) Urine Urobilinogen (Negative) mg/dL Ur Leukocyte Leah ase (Negative) Urine RBC (0-2) /hpf Urine WBC (0-5) /hpf Ur Squamous Epith Cells (0-5) Urine Bacteria (NONE) Urine Mucus Serum Ketones (Negative) Imaging Data^: CXR: My impression: Rotation but with questionable infiltrate left lung. EKG Data^: EKG 1: Attestation: I personally reviewed and interpreted this EKG as follows: EKG interpretation date: 12/14/19 EKG interpretation time: 21:13 Interpretation: Normal sinus rhythm at 82 beats a minute, significant baseline artifact, no acute ST or T wave changes. EKG 2: Attestation: I personally reviewed and interpreted this EKG as follows: EKG interpretation date: 12/14/19 EKG interpretation time: 22:42 Interpretation: Normal sinus rhythm at 75 beats a minute, no acute ST-T wave changes. Discharge Plan Discharge Patient Disposition: Placed in Observation Clinical Impression: Acute dehydration Multiple myeloma Qualifiers: Multiple myeloma remission status: not in remission Qualified Code(s): C90.00 - Multiple myeloma not having achieved remission Coding Level of Care Code ED Therapeutic Activities Services Worker for g Fwd Exam Comprehensive
[2019-12-14 21:12] LABS: Alanine Aminotransferase 15 U/L (0-41); Albumin Level 3.2 g/dL (3.5-5.2); Alkaline Phosphatase 104 IU/L (40-130); Anion Gap 20.1 (5-19); Aspartate Amino Transferase 24 U/L (0-40); Blood Urea Nitrogen 34 mg/dL (8-23); Calcium 9.5 mg/dL (8.5-10.5); Carbon Dioxide 18 mmol/L (22-29); Chloride 102 mmol/L (98-107); Globulin 4.3 g/dL (1.3-4.6); Glucose 97 mg/dL (65-115); Lipase 45 U/L (13-60); Magnesium 1.8 mg/dL (1.7-2.3); Osmolality Calculated 279 mOsm/kg (285-295); Potassium 4.1 mmol/L (3.5-5.1); Sodium 136 mmol/L (136-145); Total Bilirubin 0.3 mg/dL (0.15-1.2); Total Protein 7.5 g/dL (6.6-8.7)
[2019-12-14 21:13] LABS: Lactic Sepsis W/Reflex 0.7 mmol/L (0.5-2.2)
[2019-12-14 21:14] LABS: Troponin(5th) Baseline 61 ng/mL (0-15)
[2019-12-14] MEDS: sodium chloride 0.9% 1,000 ML 100 ML IV (21:30)
[2019-12-14 21:40] VITALS: BP 115/72; BP 120/61; BP 124/69; PULSE 78; PULSE 82; PULSE 90
--- NOTE | 2019-12-14 22:25 | ECG_ITS ---
Measurements Intervals [place] Rate: 75 P: 17 AK: 150 QRS: -30 QRSD: 98 T: 31 QT: 402 QTc: 451 SINUS RHYTHM WITH OCCASIONAL SUPRAVENTRICULAR PREMATURE COMPLEXES POSSIBLE ANTERIOR MYOCARDIAL INFARCTION , OF INDETERMINATE AGE [30 ms Q WAVE IN V3/V4, OR R < 0.2 mV IN V4] Compared to ECG 02/01/2017 23:39:52 Myocardial infarct finding now present ST (T wave) deviation no longer present Electronically Signed On 12-15-2019 18:26:21 CDT by Sravani Galvez M.D. [email or web address]
--- NOTE | 2019-12-14 22:38 | PC.NURSE ---
EKG done at 2235 and shown to ER doctor
--- NOTE | 2019-12-14 22:42 | CTR_ITS ---
PROCEDURE INFORMATION: Exam: CT Head Without Contrast Exam date and time: 12/14/2019 10:46 PM Age: 74 years old Clinical indication: Altered mental status/memory loss; Age related cognitive decline; Additional info: Cuevas/ams TECHNIQUE: Imaging protocol: Computed tomography of the head without contrast. Total DLP: 778.47 mGy-cm Radiation optimization: All CT scans at this facility use at least one of these dose optimization techniques: automated exposure control; mA and/or kV adjustment per patient size (includes targeted exams where dose is matched to clinical indication); or iterative reconstruction. COMPARISON: No relevant prior studies available. FINDINGS: Brain: No visible evidence of active or acute intracranial pathologic process. Advanced small vessel ischemic disease with senile periventricular leukomalacia. Cerebral and cerebellar atrophy with ventricular dilatation greater than that anticipated for patient's chronological age. No visible intracranial hemorrhage. Bones/joints: Unremarkable. No acute fracture. Sinuses: Visualized sinuses are unremarkable. No fluid levels. Mastoid air cells: Visualized mastoid air cells are well aerated. Soft tissues: Unremarkable. CT/CT head wo con* [id number] IMPRESSION: 1. No visible evidence for active or acute intracranial pathologic process. 2. Age-related findings. Radiation Dose CTDIVOL = (mGy): DLP = 778.47 (mGy-cm)
[2019-12-14 22:44] LABS: Bacteria Urine 1+; Bilirubin Urine Neg (NEGATIVE); Blood Urine Neg (Negative); Glucose Urine UA Norm (Normal); Ketones Urine Negative (Negative); Leukocyte Esterase Urine Negative (Negative); Mucus Urine 1+; Nitrate Urine Negative (Negative); Protein Urine Neg (Negative); RBC Urine RARE /hpf (0-2); Squamous Epithelial Cell Urine RARE (0-5); Urine Appearance Clear (CLEAR); Urine Color Yellow (Yellow); Urobilinogen Urine Norm (Negative); WBC Urine RARE /hpf (0-5); pH Urine 5 (5-7)
[2019-12-14 23:03] LABS: Troponin 5 2HR 58.28 ng/mL (0-15)
[2019-12-14 23:05] LABS: Troponin 5 2HR Delta -2.72 ABS# (0-10)
[2019-12-14] MEDS: piperacillin-tazobactam 3.375 GM in sodium chloride 0.9% (plus) 50 ML IV (23:12)
--- NOTE | 2019-12-14 23:40 | CTR_ITS ---
PROCEDURE INFORMATION: Exam: CT Lumbar Spine Without Contrast Exam date and time: 12/14/2019 11:55 PM Age: 74 years old Clinical indication: Low back pain TECHNIQUE: Imaging protocol: Computed tomography images of the lumbar spine without contrast. Total DLP: 1955.66 mGy-cm Radiation optimization: All CT scans at this facility use at least one of these dose optimization techniques: automated exposure control; mA and/or kV adjustment per patient size (includes targeted exams where dose is matched to clinical indication); or iterative reconstruction. COMPARISON: No relevant prior studies available. FINDINGS: Vertebrae: Marked compression of L2 vertebral body is suspected to be either acute or subacute. There is mild retropulsion. Grade 1 spondylolisthesis of L4 on L5 is noted due to facet arthrosis. Spinal canal narrowing also suggested at L4-L5. Discs/Spinal canal/Neural foramina: Bilateral neural foraminal narrowing at L4-L5 and right-sided narrowing suggested L2-L3. Kidneys and ureters: Atrophic or hypoplastic left kidney. 1.6 cm cyst also suggested at left kidney not requiring specific follow-up. Soft tissues: Unremarkable. CT/CT lumbar spine wo con* [id number] IMPRESSION: Marked compression fracture of L2 favored to be either acute or subacute. Additional details as above. Radiation Dose CTDIVOL = (mGy): DLP = 1955.66 (mGy-cm)
--- NOTE | 2019-12-14 23:40 | CTR_ITS ---
PROCEDURE INFORMATION: Exam: CT Cervical Spine Without Contrast Exam date and time: 12/14/2019 11:55 PM Age: 74 years old Clinical indication: Neck pain TECHNIQUE: Imaging protocol: Computed tomography images of the cervical spine without contrast. Total DLP: 568.54 mGy-cm Radiation optimization: All CT scans at this facility use at least one of these dose optimization techniques: automated exposure control; mA and/or kV adjustment per patient size (includes targeted exams where dose is matched to clinical indication); or iterative reconstruction. COMPARISON: CT neck w con* [id number] 10/13/2018 9:00 AM FINDINGS: Vertebrae: No visible acute osseous abnormality. No visible fracture, subluxation, or dislocation. Discs/Spinal canal/Neural foramina: Advanced degenerative disease and degenerative disc disease with disc space height loss and marked spondylosis deformans C4/C5, C5/C6, and C6/C7. Reversal of the normal cervical lordosis. Osteoporosis. Facet arthrosis. Levoscoliosis. Multilevel neural foraminal stenosis. Moderate spinal stenosis C5/C6 due to a posterior osteophyte disc complex. Milder central canal stenosis C4/C5 and C6/C7. Other bones/joints: Compression plate and screw fixation device left mandible. Evidence of a previous left neck dissection. Lungs: Peripheral acinar emphysema lung apices with associated parenchymal scarring. CT/CT cervical spin wo con* [id number] IMPRESSION: 1. Nonacute. 2. Advanced degenerative disease and degenerative disc disease with spondylosis deformans, facet arthrosis, neural foraminal stenosis, and central canal stenosis as detailed in text above. Radiation Dose CTDIVOL = (mGy): DLP = 568.54 (mGy-cm)
--- NOTE | 2019-12-14 23:40 | CTR_ITS ---
PROCEDURE INFORMATION: Exam: CT Chest With Contrast Exam date and time: 12/14/2019 11:48 PM Age: 74 years old Clinical indication: Shortness of breath; Additional info: SOB TECHNIQUE: Imaging protocol: Computed tomography of the chest with intravenous contrast. Total DLP: 787.79 mGy-cm Radiation optimization: All CT scans at this facility use at least one of these dose optimization techniques: automated exposure control; mA and/or kV adjustment per patient size (includes targeted exams where dose is matched to clinical indication); or iterative reconstruction. Contrast material: OMNI 300; Contrast volume: 95 ml; Contrast route: 20G; COMPARISON: CT chest wo con [id number] 11/29/2015 9:37 AM FINDINGS: Lungs: Extensive chronic lung disease. Pulmonary fibrosis. Peripheral acinar emphysema. Posterior basal segment right lower lobe tubular bronchiectasis. Bilateral apical scarring, left greater right. Pleural space: Unremarkable. No pneumothorax. No pleural effusion. Heart: Advanced 3 vessel coronary artery disease. Aorta: The thoracic aorta is nonaneurysmal with moderate arterial sclerotic disease. Lymph nodes: No visible mediastinal or hilar lymphadenopathy. Evidence of antecedent granulomatous disease with calcified hilar complexes. Kidneys and ureters: Limited assessment of the upper abdomen reveals and atrophic left kidney with simple cortical cyst. Calcified splenic granulomas. Liver unremarkable. Gallbladder contains a tiny gallstone. Adrenal glands unremarkable. Right kidney unremarkable as imaged. Pancreas unremarkable for age. Hollow viscus within the field of view unremarkable. Bones/joints: Advanced degenerative disease and degenerative disc disease of spine without osteoporosis. Old compression wedge deformities T5 and L2. Soft tissues: Unremarkable for age. CT/CT chest w con* [id number] IMPRESSION: 1. Extensive chronic lung disease as detailed in text above. 2. Advanced 3 vessel coronary disease. COMMENTS: Consistent with the [place] [employer]'s Incidental Findings Committee white paper (J Am Rodolfo Radiol 2018): Any incidental cystic renal lesion classified in this report as too small to characterize or simple appearing is likely a benign cyst. No follow-up imaging is recommended for these lesions per consensus recommendations based on imaging criteria. Radiation Dose CTDIVOL = (mGy): DLP = 787.79 (mGy-cm)
--- NOTE | 2019-12-14 23:40 | CTR_ITS ---
PROCEDURE INFORMATION: Exam: CT Thoracic Spine Without Contrast Exam date and time: 12/14/2019 11:55 PM Age: 74 years old Clinical indication: Pain in thoracic spine; Additional info: SOB TECHNIQUE: Imaging protocol: Computed tomography images of the thoracic spine without contrast. Total DLP: 1728.03 mGy-cm Radiation optimization: All CT scans at this facility use at least one of these dose optimization techniques: automated exposure control; mA and/or kV adjustment per patient size (includes targeted exams where dose is matched to clinical indication); or iterative reconstruction. COMPARISON: No relevant prior studies available. FINDINGS: Vertebrae: There is moderate compression of the T5 vertebral body. A fracture of the tip of the spinous process of T5 is noted as well. There is severe compression of the L2 vertebral body partially visualized. Discs/Spinal canal/Neural foramina: No spinal canal stenosis. Soft tissues: Unremarkable. Vasculature: Calcifications are seen within the thoracic and abdominal aorta. Lungs: There is a background of centrilobular emphysema, parenchymal scarring and bronchiectasis. Kidneys and ureters: There is prominent atrophy of the left kidney seen. There is a 1.4 cm hypoattenuation lesion seen on the posterior aspect of the left kidney compatible with a simple cyst. A 1.8 mm nonobstructing calculus is seen in the upper pole of the left kidney. CT/CT thoracic spin wo con* [id number] IMPRESSION: 1. Moderate compression of the T5 vertebral body 2. Fracture of the distal tip of the spinous process of T5. 3. Severe compression of the L2 vertebral body partially imaged. Radiation Dose CTDIVOL = (mGy): DLP = 1728.03 (mGy-cm)
--- NOTE | 2019-12-14 23:42 | P.HP_ITS ---
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 Patient has Alzheimer's dementia, most of the history was obtained by patient's , patient does not know why he is here, he is alert oriented x1, says no to most questioning. Patient states that she feels that his Alzheimer's dementia has progressively gotten worse, he is alteration of his sleep cycle, he is up during the night, sometimes sleeps for 18 hours, he has had a poor appetite, it is hard for her to get him to eat anything, he has generalized weakness, fatigue, he is a 1 person assist at home, needs assistance with activities of daily living, has had frequent falls. In addition patient's states that patient has not been behaving appropriately, he is seeing things are not there, he is seeing people, a week ago, he pooped on the floor, he is more forgetful, he can recognize his his , but cannot carry out tasks. No fevers, no chills, no cough, no dysuria, has had falls with increased complaints of back pain. Patient states that about a week ago, he fell, he was on the floor for a prolonged period of time, when his found him. Patient and live in a 36 foot camper. Review of Systems Const: Denies: fever, chills, fatigue or malaise Eyes: Denies: change in vision or blurry vision ENMT: Denies: nasal congestion Resp: Denies: shortness of breath, productive cough, non-productive cough or wheezing GI: Denies: abdominal pain, nausea, vomiting, vomiting blood, diarrhea, constipation, blood in stool or black tarry stool : Denies: flank pain, difficulty urinating, painful urination or urinary frequency Musc: Denies: neck pain or back pain Skin/Breast: Denies: rash Neuro: Denies: headache, dizziness or vertigo Psych: Denies: anxiety or depression Endo: Denies: excessive urination or excessive thirst Medications/Allergies Home Medications Medication Instructions Recorded Confirmed Last Taken Type aspirin 325 mg PO DAILY 12/14/19 12/14/19 Unknown History potassium gluconate 595 mg PO BID 12/14/19 12/14/19 Unknown History sertraline 100 mg PO DAILY 12/14/19 12/14/19 Unknown History Allergies Allergy/AdvReac Type Severity Reaction Status Date / Time No Known Allergies Allergy Verified 12/14/19 20:26 PFSH Acute PFSH: Medical History (Updated 12/14/19 @ 23:56 by Tadeo Castro MD) Acute back pain Alzheimer disease COPD (chronic obstructive pulmonary disease) Falls GERD (gastroesophageal reflux disease) History of pancreatitis Hyperlipidemia Hypertension Multiple myeloma Obstructive sleep apnea Surgical History (Updated 12/14/19 @ 23:50 by Tadeo Castro MD) History of mandibular surgery Family History (Updated 12/14/19 @ 23:51 by Tadeo Castro MD) Other Hypertension Social History (Updated 12/14/19 @ 23:51 by Tadeo Castro MD) Smoking and tobacco status: current every day smoker Alcohol intake: never Substance/Drug Use: never Vitals/I&O/Wt Last Vital Signs Temp 97.8 F 12/14/19 20:21 Pulse 78 12/14/19 21:40 Resp 18 12/14/19 20:21 BP 115/72 12/14/19 21:40 Pulse Ox 96 12/14/19 20:21 Weight last 48 hrs Weight 61.235 kg Physical Exam Const: COMMON NORMALS: no apparent distress and oriented x3 GENERAL APPEARANCE: cooperative and comfortable HENMT: COMMON NORMALS: normocephalic HEAD & SCALP: normocephalic Eye: COMMON NORMALS: PERRL GENERAL EYE: normal appearance of both eyes PUPIL: Yes PERRL DIRECT OPHTHALMOSCOPY: Yes no papilledema Neck/C-Spine: COMMON NORMALS: full ROM, no lymphadenopathy and no JVD Lymph: LYMPHATIC: no lymphadenopathy noted Resp: COMMON NORMALS: normal respiratory effort, no retractions, no use of accessory muscles and clear to auscultation bilaterally AUSCULTATION: clear to auscultation bilaterally Cardio: COMMON NORMALS: no JVD, regular rate, regular rhythm, S1 normal heart sound, S2 normal heart sound, no gallops, no clicks and no murmurs RATE: regular rate RHYTHM: regular rhythm HEART SOUNDS: S1 normal and S2 normal GI: COMMON NORMALS: normal to inspection, nondistended, normoactive bowel sounds, soft to palpation, non-tender and no hepatosplenomegaly PALPATION: Yes soft and Yes no hepatosplenomegaly Extremity: COMMON NORMALS: normal to inspection and full ROM Neuro: COMMON NORMALS: moves all extremities and no focal motor deficits SENSORIUM/ORIENTATION: Yes alert, Yes oriented to person, No oriented to place, No oriented to time and No orientation impaired Psych: SPEECH: Yes minimal THOUGHT PROCESS: confused ATTENTION/CONCENTRATION: Yes attention grossly impaired Data : 12/14/19 20:33 12/14/19 20:33 Micro: Microbiology 12/14/19 20:55 Blood Culture - Preliminary Blood SPECIMEN COLLECTED 12/14/19 23:05 Blood Culture - Preliminary Blood SPECIMEN COLLECTED A&P Assessment and plan (1) AMS (altered mental status): -Multifactorial likely secondary to dehydration, Alzheimer's dementia, anemia -We will do this CT of the head as he has calvarial involvement of the multiple myeloma, monitor for progression, for possible edema, also has falls, rule out intracranial pathology -Chest x-ray does show interstitial infiltrates, loss of right heart border, but does have pulmonary fibrosis, will order CT of the chest, inflammatory markers -Urine culture negative -Monitor for fevers, monitor respiratory status Status: Acute (2) Acute dehydration: -Continue IV hydration -monitor creatinine Status: Acute (3) Acute back pain: -History of multiple myeloma, multiple falls -We will obtain CT of of the cervical spine, thorax, lumbar spine Status: Acute (4) Falls: -Multiple falls, PT OT -Consult case management for physical therapy [place] [facility] placement Status: Acute (5) Physical deconditioning: PT OT Status: Acute (6) Alzheimer disease: -Loss of short-term memory progressing to long-term memory -Has evidence of loss of executive level of functioning -Chest x-ray does show loss of right heart border, interstitial infiltrates, no fevers, no cough, -We will do CT of the chest, decide on antibiotic therapy Status: Acute (7) Multiple myeloma: -IgA kappa myeloma diagnosed 2014 -Has symptomatic anemia, 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 -Destruction of the mandible status post surgery -Started Velcade, Revlimid, dexamethasone on 04/18/2016 -Continue Revlimid 5 mg daily -Stopped treatment on November 2017 due to declining performance status Status: Acute Qualifiers: Multiple myeloma remission status: not in remission Qualified Code(s): C90.00 - Multiple myeloma not having achieved remission (8) GERD (gastroesophageal reflux disease): Status: Acute (9) Obstructive sleep apnea: Status: Acute (10) COPD (chronic obstructive pulmonary disease): Not in exacerbation Status: Acute (11) Hyperlipidemia: Status: Acute (12) Hypertension: Status: Acute (13) Anemia: -Hemoglobin 9.6 -We will do iron studies -Likely secondary to multiple myeloma Status: Acute Attestations Medical Necessity Statement*: Patient requires hospitalization, inpatient, greater than 2 midnights, altered mental status, falls, back pain, deconditioning, anemia Coding Level of Care Code Acute Training And Development Specialist for [facility] Fwd Diagnoses AMS (altered mental status) R41.82 Acute dehydration E86.0 Acute back pain M54.9 Falls W19.XXXA Physical deconditioning R53.81 Alzheimer disease G30.9; F02.80 Multiple myeloma C90.00 Multiple myeloma remission status: not in remission GERD (gastroesophageal reflux disease) K21.9 Obstructive sleep apnea G47.33 COPD (chronic obstructive pulmonary disease) J44.9 Hyperlipidemia E78.5 Hypertension I10 Anemia D64.9
[2019-12-15] VITALS (10 sets, daily range): BP systolic 113–132; BP diastolic 54–75; PULSE 73–97; RESP 16–18; TEMP 36.3–36.9; O2SAT 92–98
[2019-12-15] MEDS: iohexol 300 mg/mL 100 mL Btl IV (00:19)
[2019-12-15] MEDS: sodium chloride 0.9% 1,000 ML 100 ML IV ×2 (02:07→13:30)
--- NOTE | 2019-12-15 02:25 | ECG_ITS ---
Measurements Intervals [place] Rate: 74 P: -8 MI: 140 QRS: -35 QRSD: 94 T: 9 QT: 398 QTc: 443 SINUS RHYTHM MARKED LEFT AXIS DEVIATION [QRS AXIS < -30] PATTERN CONSISTENT WITH PULMONARY DISEASE Compared to ECG 02/01/2017 23:39:52 Left-axis deviation now present ST (T wave) deviation no longer present Electronically Signed On 12-15-2019 18:26:40 CDT by Sravani Galvez M.D. [email or web address]
[2019-12-15 02:45] LABS: Procalcitonin 0.16 ng/mL (0-0.5); Vitamin B12 561 pg/mL (232-1245)
[2019-12-15 02:46] LABS: Folate Level 11.1 ng/mL (4.5-32.2)
[2019-12-15 02:57] LABS: C Reactive Protein 4.8 mg/L (0.0-4.9)
[2019-12-15 03:11] LABS: Ferritin 1621 ng/mL (30-400)
[2019-12-15 04:42] LABS: Troponin 5 6HR 67.37 ng/mL (0-15); Troponin 5 6HR Delta 6.37 ng/L (0-12)
[2019-12-15 04:47] LABS: Erythrocyte Sedimentation Rate > 120 mm/hr (0-10)
[2019-12-15] MEDS: sertraline 100 mg Tablet PO (09:39)
[2019-12-15] MEDS: pantoprazole DR 40 mg Tablet PO (09:39)
[2019-12-15] MEDS: aspirin 325 mg Tablet PO (09:39)
--- NOTE | 2019-12-15 14:42 | MRR_ITS ---
PROCEDURE INFORMATION: Exam: MR Lumbar Spine Without Contrast. Exam date and time: 12/15/2019 2:43 PM Age: 74 years old Clinical indication: Low back pain; Additional info: Compression fracture, HX of mm TECHNIQUE: Imaging protocol: Multiplanar magnetic resonance images of the lumbar spine without contrast. COMPARISON: 1. CT lumbar spine wo con* [id number] 12/15/2019 12:[address] abdomen pelvis wo con [id number] 04/26/2017 12:31:59 AM FINDINGS: Vertebrae: There is prominent compression fracture of L2 which is unchanged from CT. There is mild bony retropulsion. There is abnormal marrow signal with low T1 and T2 signal within the vertebral body and concerning for pathologic compression fracture related to marrow infiltration and tumor. No evidence of epidural tumor. Marrow: There is heterogeneous marrow signal in bilateral ilium with somewhat rounded configuration and therefore addition marrow lesions not excluded. Largest measures approximately 4 mm. Spinal cord: Normal signal. No cord compression. Discs/Spinal canal/Neural foramina: There is grade I anterior listhesis L4 on L5. There are disc bulges, facet degenerative changes, and thickening of ligamentum flavum. T12-L1 shows no spinal stenosis or significant neural foraminal narrowing. L1-L2 shows mild spinal stenosis and bilateral neural foraminal narrowing. L2-L3 shows vfoy-kx-rndecmtd spinal stenosis and bilateral neural foraminal narrowing. There is a shallow central disc protrusion. L3-L4 shows vqgo-ee-fvwhjaad spinal stenosis and mild bilateral neural foraminal narrowing. L4-L5 shows severe spinal stenosis and moderate bilateral neural foraminal narrowing. L5-S1 shows no significant spinal stenosis or neural foraminal narrowing. Gallbladder and bile ducts: There are several small gallstones. Kidneys and ureters: Left kidney is atrophic and shows multiple cysts. There is 1.5 cm cyst in upper pole of left kidney. This has low signal rim suggesting marginal chronic hemorrhage and therefore is complex. This appears similar to abdominal CT. There is a simple appearing 1.3 cm cyst in lower kidney also similar to CT. MR/MR lumbar spine wo con* [id number] IMPRESSION: 1. Stable compression fracture of L2 with abnormal marrow signal and therefore concerning for pathologic fracture related to mural infiltration and tumor. Possible additional small lesions in ilium. 2. One complex and one simple appearing left renal cysts appear similar as can be compared to [address] 3. Cholelithiasis.
--- NOTE | 2019-12-15 14:42 | MRR_ITS ---
PROCEDURE INFORMATION: Exam: MR Thoracic Spine Without Contrast Exam date and time: 12/15/2019 2:43 PM Age: 74 years old Clinical indication: Pain in thoracic spine; Additional info: Compression fracture, HX of mm TECHNIQUE: Imaging protocol: Multiplanar magnetic resonance images of the thoracic spine without contrast. COMPARISON: 1. CT thoracic spin wo con* [id number] 12/15/2019 12:[address] cervical spin wo con* [id number] 12/15/2019 12:02:21 AM FINDINGS: Vertebrae: Patient has known thoracic spine T5 vertebral body compression fracture There is increased anterior wedging of the T5 vertebral body. There is slight posterior buckling of the posterior vertebral body margin in central and right paracentral region without significant spinal stenosis or cord impingement. There is abnormal marrow signal with low T1 and T2 signal within the vertebral body as well within the L2 vertebral body and therefore these are concerning for pathologic compression fractures related to marrow infiltration and tumor. No evidence of epidural tumor. There is unchanged grade 1 anterior listhesis of C7 on T1, T3 on T4, and T4 on T5. Spinal cord: See Vertebrae finding. Discs/Spinal canal/Neural foramina: Degenerative changes are noted in the cervical spine on fruit buyer view with spinal stenosis greatest at C5-C6, and likely severe. There is reversal cervical lordosis. T1-T2 shows a very shallow left paracentral protrusion. No cord compression or spinal stenosis. T2-T3, T2-T3, T3-T4, T4-T5, T5-T6, T6-T7 and T6-T7 show mild disc bulges. T7-T8 shows a central disc protrusion which extends above the disc space level. This contacts or nearly contacts the spinal cord without significant spinal stenosis. There is minimal prominence of central canal at this level. T8-T9 shows a small right paracentral disc protrusion without spinal stenosis. T9-T10, T10-T11 show mild disc bulges. T11-T12 shows a shallow left paracentral protrusion without spinal stenosis. Lungs: There are chronic changes in lung not well evaluated with MRI. Please see report of prior chest CT. Soft tissues: There is no evidence of paravertebral mass. MR/MR thoracic spin wo con* [id number] IMPRESSION: Increase compression anteriorly at T5 level. Compression of L2. Both levels show abnormal marrow signal and therefore these are concerning for pathologic compression fractures related to marrow infiltration and tumor. No evidence of epidural tumor.
--- NOTE | 2019-12-15 14:43 | P.PN_ITS ---
Subjective Subjective: Interval history: Chart reviewed, imaging noted, will order MRI for further evaluation. Patient seen and examined, sitting in chair, frail- appearing, aware of compression fractures as a states that he has had this for quite some time and has had evaluation done before with imaging including MRI. I am unable to find MRI on our records the patient states that he had them done at our facility. He denies any pain currently and does not appear uncomfortable. Requesting that we contact his as she has been unwell. He does have a back brace that he uses intermittently at home though states that it is a struggle to put it on so does not use it as much as he should. Medications: Reviewed: Yes Medication Review Details: Active Medications Generic Name Dose Route Start Last Admin Trade Name Freq PRN Reason Stop Dose Admin Aspirin 325 mg 12/15/19 09:00 12/15/19 09:39 Aspirin PO 325 mg DAILY LITTLE Administration Sodium Chloride 1,000 mls @ 100 m ls/hr 12/14/19 20:30 12/15/19 13:30 Sodium Chloride 0.9% IV 100 mls/hr .Q10H LITTLE Administration Non-Formulary Medi cation 1 cap 12/15/19 09:00 12/15/19 09:42 Lipase-Protease- Amylase [Creon] PO Not Given TID LITTLE Oxycodone/Acetamin ophen 1 tab 12/15/19 01:59 Percocet 10-325 Mg PO Q6H PRN PAIN Pantoprazole Sodiu m 40 mg 12/15/19 09:00 12/15/19 09:39 Protonix PO 40 mg DAILY LITTLE Administration Sertraline HCl 100 mg 12/15/19 09:00 12/15/19 09:39 Zoloft PO 100 mg DAILY LITTLE Administration No Known Allergies Allergy (Verified 12/14/19 20:26) Vitals/I&O/Wt Last Vital Signs Temp 97.6 F 12/15/19 11:45 Pulse 76 12/15/19 11:45 Resp 18 12/15/19 11:45 BP 116/66 12/15/19 11:45 Pulse Ox 98 12/15/19 11:45 12/14/19 12/15/19 12/15/19 22:59 06:59 14:59 Intake Total 461.667 / 328.342 9321 / 1240 Balance 461.667 / 725.988 7072 / 1240 Weight last 48 hrs Weight 61.235 kg Physical Exam Const: COMMON NORMALS: no apparent distress and oriented x3 GENERAL APPEARANCE: cooperative, comfortable, frail appearing and appears older than stated age NUTRITIONAL APPEARANCE: thin ORIENTATION/CONSCIOUSNESS: Yes awake HENMT: COMMON NORMALS: normocephalic, head/scalp atraumatic, hearing grossly normal bilaterally and moist oral mucous membranes HEAD & SCALP: normocephalic and atraumatic Eye: COMMON NORMALS: PERRL, EOMs intact bilaterally and conjunctivae normal CONJUNCTIVA: Yes conjunctivae normal PUPIL: Yes PERRL Neck/C-Spine: COMMON NORMALS: full ROM GENERAL: Yes normal visual inspection and Yes trachea midline Resp: COMMON NORMALS: normal respiratory effort, no retractions, no use of accessory muscles and clear to auscultation bilaterally EFFORT & INSPECTION: Yes able to speak in complete sentences, Yes symmetric chest movement and No tachypneic AUSCULTATION: clear to auscultation bilaterally Cardio: COMMON NORMALS: regular rate, regular rhythm, S1 normal heart sound, S2 normal heart sound and no murmurs RATE: regular rate RHYTHM: regular rhythm HEART SOUNDS: S1 normal and S2 normal GI: COMMON NORMALS: normal to inspection, nondistended, normoactive bowel sounds, soft to palpation and non-tender PALPATION: Yes soft Extremity: COMMON NORMALS: normal to inspection, full ROM, no clubbing, cyanosis or edema and no pedal edema Neuro: COMMON NORMALS: oriented x3, moves all extremities, no focal motor deficits and no sensory deficits noted Psych: COMMON NORMALS: mental status grossly normal, thought process normal, cooperative, affect normal and speech normal SPEECH: Yes normal speech THOUGHT PROCESS: normal thought process Skin: COMMON NORMALS: no rashes or lesions noted, no jaundice, no petechiae and no mottling GENERAL SKIN EXAM: no rashes or lesions noted Data : 12/14/19 20:33 12/14/19 20:33 Micro: Microbiology 12/14/19 20:55 Blood Culture - Preliminary Blood SPECIMEN COLLECTED 12/14/19 23:05 Blood Culture - Preliminary Blood SPECIMEN COLLECTED A&P Assessment and plan (1) Compression fracture: -Noted evidence of acute versus subacute L2 compression fracture, T5 moderate compression fracture on CT scans. Will order MRI for further evaluation. No apparent neurological compromise currently -Fall precautions -Consider neurosurgical evaluation following MRI -Pain control as needed Status: Acute (2) Acute back pain: -With recent history of recurrent falls and now noted to have evidence of compression fractures on imaging Status: Acute Qualifiers: Back pain laterality: unspecified Back pain location: back pain in unspecified location Qualified Code(s): M54.9 - Dorsalgia, unspecified (3) AMS (altered mental status): -No noted acute findings on CT head -Has known underlying Alzheimer's dementia -Noted clinical evidence of dehydration which is likely contributing to altered mental status -No noted infectious etiology; afebrile, no leukocytosis, UA negative for infection, chest x-ray unremarkable for any acute findings -Reorient as needed Status: Acute Qualifiers: Altered mental status type: unspecified Qualified Code(s): R41.82 - Altered mental status, unspecified (4) Falls: Status: Acute Qualifiers: Encounter type: initial encounter Qualified Code(s): W19.XXXA - Unspecified fall, initial encounter (5) Physical deconditioning: Status: Acute (6) Multiple myeloma: -Has known history of IgG kappa multiple myeloma with associated 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 Bourgeois Status: Chronic Qualifiers: Multiple myeloma remission status: not in remission Qualified Code(s): C90.00 - Multiple myeloma not having achieved remission (7) Alzheimer disease: Status: Chronic Qualifiers: Alzheimer's disease onset: unspecified onset Dementia behavioral disturbance: without behavioral disturbance Qualified Code(s): G30.9 - Alzheimer's disease, unspecified; F02.80 - Dementia in other diseases classified elsewhere without behavioral disturbance (8) Hypertension: -Vital signs stable Status: Chronic Qualifiers: Hypertension type: essential hypertension Qualified Code(s): I10 - Essential (primary) hypertension (9) Hyperlipidemia: Status: Chronic Qualifiers: Hyperlipidemia type: unspecified Qualified Code(s): E78.5 - Hyperlipidemia, unspecified (10) Obstructive sleep apnea: Status: Chronic (11) GERD (gastroesophageal reflux disease): Status: Chronic Qualifiers: Esophagitis presence: esophagitis presence not specified Qualified Code(s): K21.9 - Gastro-esophageal reflux disease without esophagitis (12) Anemia: -Has known history of chronic microcytic anemia related to underlying multiple myeloma -Baseline hemoglobin appears to be 9-11 -Continue to monitor hemoglobin closely Status: Chronic Qualifiers: Anemia type: unspecified type Qualified Code(s): D64.9 - Anemia, unspecified (13) COPD (chronic obstructive pulmonary disease): -No indication of acute COPD exacerbation at this time -supplemental oxygen as needed Status: Chronic Qualifiers: COPD type: unspecified COPD Qualified Code(s): J44.9 - Chronic obstructive pulmonary disease, unspecified Additional A&P Information -GI ppx with PPI -no AC due to underlying anemia -reguler diet as tolerated -Dispo: needs SNF placement -Code status: FULL code Attestations Medical Necessity Statement*: Patient requires hospitalization for continued management of back pain with noted compression fractures requiring further evaluation with MRI imaging, pain control; and pending appropriate disposition. Time Spent in Patient Care: Greater than 35 minutes (>than 50% of time spent in counselling and/or direct pt care on unit) . Coding Level of Care Code Acute Picking Crew Supervisor for g Fwd Exam Comprehensive Diagnoses Compression fracture Acute back pain M54.9 Back pain laterality: unspecified Back pain location: back pain in unspecified location AMS (altered mental status) R41.82 Altered mental status type: unspecified Falls W19.XXXA Encounter type: initial encounter Physical deconditioning R53.81 Multiple myeloma C90.00 Multiple myeloma remission status: not in remission Alzheimer disease G30.9; F02.80 Alzheimer's disease onset: unspecified onset Dementia behavioral disturbance: without behavioral disturbance Hypertension I10 Hypertension type: essential hypertension Hyperlipidemia E78.5 Hyperlipidemia type: unspecified Obstructive sleep apnea G47.33 GERD (gastroesophageal reflux disease) K21.9 Esophagitis presence: esophagitis presence not specified Anemia D64.9 Anemia type: unspecified type COPD (chronic obstructive pulmonary disease) J44.9 COPD type: unspecified COPD
[2019-12-16] VITALS (7 sets, daily range): BP systolic 115–135; BP diastolic 51–67; PULSE 70–97; RESP 18–19; TEMP 36.3–37.1; O2SAT 93–98
[2019-12-16] MEDS: sodium chloride 0.9% 1,000 ML 100 ML IV (01:51)
[2019-12-16 05:26] LABS: PROTEIN, TOTAL 6.7 g/dL (6.1-8.1)
[2019-12-16 06:07] LABS: Basophils % 0.2 %; Eosinophils # 0.1 10^3/uL (0.0-0.8); Eosinophils % 1.9 %; Hematocrit 25.1 % (42.0-52.0); Hemoglobin 8.1 g/dL (11.7-16.6); Lymphocytes # 1.2 10^3/uL (0.8-4.8); Lymphocytes % 21.8 %; Mean Corpuscular HGB Conc 32.3 g/dL (30.0-36.0); Mean Corpuscular Hemoglobin 34.9 pg (28.0-34.0); Mean Corpuscular Volume 108.2 fL (80-94); Mean Platelet Volume 11.5 fL (7.4-10.4); Monocytes # 0.5 10^3/uL (0.2-0.9); Monocytes % 9.6 %; Neutrophils # 3.5 10^3/uL (1.8-7.7); Neutrophils % 65.7 %; Nucleated Red Blood Cells % 0 %; Platelet Count 166 10^3/cmm (130-400); Red Blood Count 2.32 10^6/uL (4.1-5.3); Red Cell Distribution Width 15.2 % (12.1-15.1); White Blood Count 5.3 10^3/uL (4.0-10.0)
[2019-12-16 07:51] LABS: Anion Gap 16.2 (5-19); Blood Urea Nitrogen 7 mg/dL (8-23); Calcium 8.3 mg/dL (8.5-10.5); Carbon Dioxide 21 mmol/L (22-29); Chloride 103 mmol/L (98-107); Glucose 101 mg/dL (65-115); Osmolality Calculated 280 mOsm/kg (285-295); Potassium 3.2 mmol/L (3.5-5.1); Sodium 137 mmol/L (136-145)
[2019-12-16] MEDS: aspirin 325 mg Tablet PO (08:50)
[2019-12-16] MEDS: pantoprazole DR 40 mg Tablet PO (08:50)
[2019-12-16] MEDS: sertraline 100 mg Tablet PO (08:50)
--- NOTE | 2019-12-16 12:35 | PM.PN ---
Subjective Subjective: Interval history: MRI today, had 850 mL urine output overnight. Remains neurologically intact, denies back pain. Patient seen and examined following return after MRI, resting in bed, seems to be in good spirits, no complaints some back discomfort during MRI. States that Dr. Bourgeois has been following up on his back issues due to concern for evidence of spinal involvement from multiple myeloma. Feels much better today as he has had a chance to talk to his on the phone. Medications: Reviewed: Yes Medication Review Details: Active Medications Generic Name Dose Route Start Last Admin Trade Name Freq PRN Reason Stop Dose Admin Aspirin 325 mg 12/15/19 09:00 12/16/19 08:50 Aspirin PO 325 mg DAILY LITTLE Administration Sodium Chloride 1,000 mls @ 100 m ls/hr 12/14/19 20:30 12/16/19 01:51 Sodium Chloride 0.9% IV 100 mls/hr .Q10H LITTLE Administration Non-Formulary Medi cation 1 cap 12/15/19 09:00 12/16/19 08:53 Lipase-Protease- Amylase [Creon] PO Not Given TID LITTLE Oxycodone/Acetamin ophen 1 tab 12/15/19 01:59 Percocet 10-325 Mg PO Q6H PRN PAIN Pantoprazole Sodiu m 40 mg 12/15/19 09:00 12/16/19 08:50 Protonix PO 40 mg DAILY LITTLE Administration Sertraline HCl 100 mg 12/15/19 09:00 12/16/19 08:50 Zoloft PO 100 mg DAILY LITTLE Administration No Known Allergies Allergy (Verified 12/14/19 20:26) Vitals/I&O/Wt Last Vital Signs Temp 98.8 F 12/16/19 11:18 Pulse 75 12/16/19 11:18 Resp 18 12/16/19 11:18 BP 134/51 12/16/19 11:18 Pulse Ox 96 12/16/19 11:18 12/15/19 12/16/19 12/16/19 22:59 06:59 14:59 Intake Total 120 / 1360 1350 / 2710 240 / 240 Output Total 850 / 850 Balance 120 / 1360 500 / 1860 240 / 240 Weight last 48 hrs Weight 61.235 kg Physical Exam Const: COMMON NORMALS: no apparent distress and oriented x3 GENERAL APPEARANCE: cooperative, comfortable, frail appearing and appears older than stated age NUTRITIONAL APPEARANCE: thin ORIENTATION/CONSCIOUSNESS: Yes awake HENMT: COMMON NORMALS: normocephalic, head/scalp atraumatic, hearing grossly normal bilaterally and moist oral mucous membranes HEAD & SCALP: normocephalic and atraumatic Eye: COMMON NORMALS: PERRL, EOMs intact bilaterally and conjunctivae normal CONJUNCTIVA: Yes conjunctivae normal PUPIL: Yes PERRL Neck/C-Spine: COMMON NORMALS: full ROM GENERAL: Yes normal visual inspection and Yes trachea midline Resp: COMMON NORMALS: normal respiratory effort, no retractions, no use of accessory muscles and clear to auscultation bilaterally EFFORT & INSPECTION: Yes able to speak in complete sentences, Yes symmetric chest movement and No tachypneic AUSCULTATION: clear to auscultation bilaterally Cardio: COMMON NORMALS: regular rate, regular rhythm, S1 normal heart sound, S2 normal heart sound and no murmurs RATE: regular rate RHYTHM: regular rhythm HEART SOUNDS: S1 normal and S2 normal GI: COMMON NORMALS: normal to inspection, nondistended, normoactive bowel sounds, soft to palpation and non-tender PALPATION: Yes soft Extremity: COMMON NORMALS: normal to inspection, full ROM, no clubbing, cyanosis or edema and no pedal edema Neuro: COMMON NORMALS: oriented x3, moves all extremities, no focal motor deficits and no sensory deficits noted Psych: COMMON NORMALS: mental status grossly normal, thought process normal, cooperative, affect normal and speech normal SPEECH: Yes normal speech THOUGHT PROCESS: normal thought process Skin: COMMON NORMALS: no rashes or lesions noted, no jaundice, no petechiae and no mottling GENERAL SKIN EXAM: no rashes or lesions noted Data : 12/16/19 05:50 12/16/19 07:18 Micro: Microbiology 12/14/19 20:55 Blood Culture - Preliminary Blood NEGATIVE TO DATE 12/14/19 23:05 Blood Culture - Preliminary Blood NEGATIVE TO DATE A&P Assessment and plan (1) Compression fracture: -Noted evidence of acute versus subacute L2 compression fracture, T5 moderate compression fracture on CT scans. No apparent neurological compromise currently. -MRI L-spine: Stable compression fracture of L2 with abnormal marrow signal and concerning for pathologic fracture related to marrow infiltration and tumor, possible additional small lesions in ileum, left renal cysts, cholelithiasis -MRI T-spine: T5 vertebral body compression fracture, abnormal marrow signal in the vertebral body. No cord compression or spinal stenosis -Fall precautions -no neurosx aoc operations intelligence officer here; will need to discuss findings with oncology -Pain control as needed Status: Acute (2) Acute back pain: -With recent history of recurrent falls and now noted to have evidence of compression fractures on imaging Status: Acute Qualifiers: Back pain laterality: unspecified Back pain location: back pain in unspecified location Qualified Code(s): M54.9 - Dorsalgia, unspecified (3) AMS (altered mental status): -No noted acute findings on CT head -Has known underlying Alzheimer's dementia -Noted clinical evidence of dehydration which is likely contributing to altered mental status -No noted infectious etiology; afebrile, no leukocytosis, UA negative for infection, chest x-ray unremarkable for any acute findings -Reorient as needed; seems to wax and wane Status: Acute Qualifiers: Altered mental status type: unspecified Qualified Code(s): R41.82 - Altered mental status, unspecified (4) Falls: Status: Acute Qualifiers: Encounter type: initial encounter Qualified Code(s): W19.XXXA - Unspecified fall, initial encounter (5) Physical deconditioning: Status: Acute (6) Multiple myeloma: -Has known history of IgG kappa multiple myeloma with associated 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 Bourgeois Status: Chronic Qualifiers: Multiple myeloma remission status: not in remission Qualified Code(s): C90.00 - Multiple myeloma not having achieved remission (7) Alzheimer disease: Status: Chronic Qualifiers: Alzheimer's disease onset: unspecified onset Dementia behavioral disturbance: without behavioral disturbance Qualified Code(s): G30.9 - Alzheimer's disease, unspecified; F02.80 - Dementia in other diseases classified elsewhere without behavioral disturbance (8) Hypertension: -Vital signs stable Status: Chronic Qualifiers: Hypertension type: essential hypertension Qualified Code(s): I10 - Essential (primary) hypertension (9) Hyperlipidemia: Status: Chronic Qualifiers: Hyperlipidemia type: unspecified Qualified Code(s): E78.5 - Hyperlipidemia, unspecified (10) Obstructive sleep apnea: Status: Chronic (11) GERD (gastroesophageal reflux disease): Status: Chronic Qualifiers: Esophagitis presence: esophagitis presence not specified Qualified Code(s): K21.9 - Gastro-esophageal reflux disease without esophagitis (12) Anemia: -Has known history of chronic microcytic anemia related to underlying multiple myeloma -Baseline hemoglobin appears to be 9-11 -Continue to monitor hemoglobin closely Status: Chronic Qualifiers: Anemia type: unspecified type Qualified Code(s): D64.9 - Anemia, unspecified (13) COPD (chronic obstructive pulmonary disease): -No indication of acute COPD exacerbation at this time -supplemental oxygen as needed Status: Chronic Qualifiers: COPD type: unspecified COPD Qualified Code(s): J44.9 - Chronic obstructive pulmonary disease, unspecified Additional A&P Information -GI ppx with PPI -no AC due to underlying anemia -reguler diet as tolerated -Dispo: working on SNF placement -Code status: FULL code Attestations Medical Necessity Statement*: Patient requires hospitalization for continued management of compression fracture pending appropriate disposition. Time Spent in Patient Care: 16 - 35 minutes (>than 50% of time spent in counselling and/or direct pt care on unit). Coding Level of Care Code Acute Orchid Transplanter for Chg Fwd Exam Comprehensive Diagnoses Compression fracture Acute back pain M54.9 Back pain laterality: unspecified Back pain location: back pain in unspecified location AMS (altered mental status) R41.82 Altered mental status type: unspecified Falls W19.XXXA Encounter type: initial encounter Physical deconditioning R53.81 Multiple myeloma C90.00 Multiple myeloma remission status: not in remission Alzheimer disease G30.9; F02.80 Alzheimer's disease onset: unspecified onset Dementia behavioral disturbance: without behavioral disturbance Hypertension I10 Hypertension type: essential hypertension Hyperlipidemia E78.5 Hyperlipidemia type: unspecified Obstructive sleep apnea G47.33 GERD (gastroesophageal reflux disease) K21.9 Esophagitis presence: esophagitis presence not specified Anemia D64.9 Anemia type: unspecified type COPD (chronic obstructive pulmonary disease) J44.9 COPD type: unspecified COPD
--- NOTE | 2019-12-16 14:35 | PC.CHAP ---
Pastoral Care Encounter/Spiritual Assessment Type of Contact [] Declined programmer analyst consultant visit [] Patient/Family/Request visit [] Outpatient visit [] Follow-up visit [] Physician referral [] Code/Alert [] Routine visit [] Staff referral [] Actively dying [] Patient sleeping [] Family support [] [] Out of room [] Palliative care [] [] Receiving care in room [] Pre-surgical visit [] Trauma [] Long length of stay [] ICU visit [] Other: Relational/Emotional Strength [] Patient feels connected with others/family/visitors/staff [] Distress [] Loneliness/isolation [] Abandonment Spirituality of Patient [] Person of Tiffany [] Attends Pentecostal of their Tiffany [] Believes in Prayer [] Reads Bible or Shinto materials [] There are Spiritual issues to be addressed Advertising Copy Writer Interventions [] Prayer [] Active listening [] Non-anxious presence [] Spiritual/emotional support [] Crisis/trauma care [] Spiritual counseling [] Bereavement support [] Provided bereavement packet [] Provided Bible/devotional materials [] Provided toy/stuffed animal, coloring book to patient or family member [] Provided Communion [] Anointing/[place] [] Salvation [] Completed spiritual assessment [] Other: Impact on Illness or Injury [] Angry [] Fearful [] Anxious [] Often cries [] Exhaustion [] Unable to work [] Unable to attend sikhism [] Unable to walk/stand [] Unable to read [] Unable to drive [] Unable to eat/drink [] Unable to sleep [] Unable to be with family [] Patient intubated [] Other: Summary DISCHARGED Time spent with patient
[2019-12-16] MEDS: potassium chloride oral liq 20 mEq/15 mL UDC 40 MEQ PO (14:42)
[2019-12-16 16:52] LABS: Creatinine, Random Urine 58 mg/dL (20-320); Protein, Total, Random 66 mg/dL (5-25); Protein/Creatinine Ratio 1.138 (0.022-0.128); Protein/Creatinine Ratio 1138 mg/g creat (22-128)
[2019-12-17] VITALS (10 sets, daily range): BP systolic 110–149; BP diastolic 52–75; PULSE 75–104; RESP 16–24; TEMP 36.6–37.2; O2SAT 91–98
[2019-12-17 05:50] LABS: Basophils % 0.1 %; Eosinophils # 0.1 10^3/uL (0.0-0.8); Eosinophils % 1.5 %; Hematocrit 27.7 % (42.0-52.0); Hemoglobin 8.9 g/dL (11.7-16.6); Lymphocytes # 1.1 10^3/uL (0.8-4.8); Lymphocytes % 16.1 %; Mean Corpuscular HGB Conc 32.1 g/dL (30.0-36.0); Mean Corpuscular Hemoglobin 34.1 pg (28.0-34.0); Mean Corpuscular Volume 106.1 fL (80-94); Mean Platelet Volume 11.3 fL (7.4-10.4); Monocytes # 0.7 10^3/uL (0.2-0.9); Monocytes % 10.5 %; Neutrophils # 4.8 10^3/uL (1.8-7.7); Neutrophils % 70.6 %; Nucleated Red Blood Cells % 0 %; Platelet Count 178 10^3/cmm (130-400); Red Blood Count 2.61 10^6/uL (4.1-5.3); Red Cell Distribution Width 14.7 % (12.1-15.1); White Blood Count 6.8 10^3/uL (4.0-10.0)
[2019-12-17] MEDS: oxyCODONE-APAP 10-325 mg Tablet 1 TAB PO ×2 (07:50→18:41)
[2019-12-17] MEDS: aspirin 325 mg Tablet PO (09:24)
[2019-12-17] MEDS: sertraline 100 mg Tablet PO (09:24)
[2019-12-17] MEDS: pantoprazole DR 40 mg Tablet PO (09:24)
--- NOTE | 2019-12-17 10:19 | P.PN_ITS ---
Subjective Subjective: Interval history: Had 400 mL urine output overnight, VSS. Waiting on disposition. Hemoglobin stable. Continued hypokalemia, will replace orally. Resting in bed, wants to take a nap. Denies any pain currently, worked with PT earlier this morning, forgetful and unsteady but cooperative. Medications: Reviewed: Yes Medication Review Details: Active Medications Generic Name Dose Route Start Last Admin Trade Name Freq PRN Reason Stop Dose Admin Aspirin 325 mg 12/15/19 09:00 12/17/19 09:24 Aspirin PO 325 mg DAILY LITTLE Administration Non-Formulary Medi cation 1 cap 12/15/19 09:00 12/17/19 09:24 Lipase-Protease- Amylase [Creon] PO Not Given TID LITTLE Oxycodone/Acetamin ophen 1 tab 12/15/19 01:59 12/17/19 07:50 Percocet 10-325 Mg PO 1 tab Q6H PRN Administration PAIN Pantoprazole Sodiu m 40 mg 12/15/19 09:00 12/17/19 09:24 Protonix PO 40 mg DAILY LITTLE Administration Sertraline HCl 100 mg 12/15/19 09:00 12/17/19 09:24 Zoloft PO 100 mg DAILY LITTLE Administration No Known Allergies Allergy (Verified 12/14/19 20:26) Vitals/I&O/Wt Last Vital Signs Temp 98.9 F 12/17/19 08:00 Pulse 93 12/17/19 08:00 Resp 18 12/17/19 08:00 BP 149/66 12/17/19 08:00 Pulse Ox 96 12/17/19 08:00 12/16/19 12/17/19 12/17/19 22:59 06:59 14:59 Intake Total 240 / 1480 Output Total 100 / 100 300 / 400 100 / 100 Balance 140 / 1380 -300 / 1080 -100 / -100 Physical Exam Const: COMMON NORMALS: no apparent distress and oriented x3 GENERAL APPEARANCE: cooperative, comfortable, frail appearing and appears older than stated age NUTRITIONAL APPEARANCE: thin ORIENTATION/CONSCIOUSNESS: Yes awake HENMT: COMMON NORMALS: normocephalic, head/scalp atraumatic, hearing grossly normal bilaterally and moist oral mucous membranes HEAD & SCALP: normocephalic and atraumatic Eye: COMMON NORMALS: PERRL, EOMs intact bilaterally and conjunctivae normal CONJUNCTIVA: Yes conjunctivae normal PUPIL: Yes PERRL Neck/C-Spine: COMMON NORMALS: full ROM GENERAL: Yes normal visual insp ection and Yes trachea midline Resp: COMMON NORMALS: normal respiratory effort, no retractions, no use of accessory muscles and clear to auscultation bilaterally EFFORT & INSPECTION: Yes able to speak in complete sentences, Yes symmetric chest movement and No tachypneic AUSCULTATION: clear to auscultation bilaterally Cardio: COMMON NORMALS: regular rate, regular rhythm, S1 normal heart sound, S2 normal heart sound and no murmurs RATE: regular rate RHYTHM: regular rhythm HEART SOUNDS: S1 normal and S2 normal GI: COMMON NORMALS: normal to inspection, nondistended, normoactive bowel sounds, soft to palpation and non-tender PALPATION: Yes soft Extremity: COMMON NORMALS: normal to inspection, full ROM, no clubbing, cyanosis or edema and no pedal edema Neuro: COMMON NORMALS: oriented x3, moves all extremities, no focal motor deficits and no sensory deficits noted Psych: COMMON NORMALS: mental status grossly normal, thought process normal, cooperative, affect normal and speech normal SPEECH: Yes normal speech THOUGHT PROCESS: normal thought process Skin: COMMON NORMALS: no rashes or lesions noted, no jaundice, no petechiae and no mottling GENERAL SKIN EXAM: no rashes or lesions noted Data : 12/17/19 04:50 12/17/19 04:50 A&P Assessment and plan (1) Compression fracture: -Noted evidence of acute versus subacute L2 compression fracture, T5 moderate compression fracture on CT scans. No apparent neurological compromise currently. -MRI L-spine: Stable compression fracture of L2 with abnormal marrow signal and concerning for pathologic fracture related to marrow infiltration and tumor, possible additional small lesions in ileum, left renal cysts, cholelithiasis -MRI T-spine: T5 vertebral body compression fracture, abnormal marrow signal in the vertebral body. No cord compression or spinal stenosis -Fall precautions -no neurosx analytics consultant here though no urgent need for this as no neurological impairment, instability; will need to discuss findings with oncology -Pain control as needed Status: Acute (2) Acute back pain: -With recent history of recurrent falls and now noted to have evidence of compression fractures on imaging Status: Acute Qualifiers: Back pain laterality: unspecified Back pain location: back pain in unspecified location Qualified Code(s): M54.9 - Dorsalgia, unspecified (3) AMS (altered mental status): -No noted acute findings on CT head -Has known underlying Alzheimer's dementia -Noted clinical evidence of dehydration which is likely contributing to altered mental status -No noted infectious etiology; afebrile, no leukocytosis, UA negative for infection, chest x-ray unremarkable for any acute findings -Reorient as needed; seems to wax and wane Status: Acute Qualifiers: Altered mental status type: unspecified Qualified Code(s): R41.82 - Altered mental status, unspecified (4) Falls: Status: Acute Qualifiers: Encounter type: initial encounter Qualified Code(s): W19.XXXA - Unspecified fall, initial encounter (5) Physical deconditioning: Status: Acute (6) Multiple myeloma: -Has known history of IgG kappa multiple myeloma with associated 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 Bourgeois Status: Chronic Qualifiers: Multiple myeloma remission status: not in remission Qualified Code(s): C90.00 - Multiple myeloma not having achieved remission (7) Alzheimer disease: Status: Chronic Qualifiers: Alzheimer's disease onset: unspecified onset Dementia behavioral disturbance: without behavioral disturbance Qualified Code(s): G30.9 - Alzheimer's disease, unspecified; F02.80 - Dementia in other diseases classified elsewhere without behavioral disturbance (8) Hypertension: -Vital signs stable Status: Chronic Qualifiers: Hypertension type: essential hypertension Qualified Code(s): I10 - Essential (primary) hypertension (9) Hyperlipidemia: Status: Chronic Qualifiers: Hyperlipidemia type: unspecified Qualified Code(s): E78.5 - Hyperlipidemia, unspecified (10) Obstructive sleep apnea: Status: Chronic (11) GERD (gastroesophageal reflux disease): Status: Chronic Qualifiers: Esophagitis presence: esophagitis presence not specified Qualified Code(s): K21.9 - Gastro-esophageal reflux disease without esophagitis (12) Anemia: -Has known history of chronic microcytic anemia related to underlying multiple myeloma -Baseline hemoglobin appears to be 9-11 -Continue to monitor hemoglobin closely Status: Chronic Qualifiers: Anemia type: unspecified type Qualified Code(s): D64.9 - Anemia, unspecified (13) COPD (chronic obstructive pulmonary disease): -No indication of acute COPD exacerbation at this time -supplemental oxygen as needed Status: Chronic Qualifiers: COPD type: unspecified COPD Qualified Code(s): J44.9 - Chronic obstructive pulmonary disease, unspecified Additional A&P Information -GI ppx with PPI -no AC due to underlying anemia -regular diet as tolerated -Dispo: SNF placement vs. HH. Still has issues with waxing and waning mental status, poor balance, unsteady gait. Would benefit from rehab but will need to discuss dispo further with to make sure if home is a choice that this is a safe option for him -Code status: FULL code Attestations Medical Necessity Statement*: Patient requires hospitalization for continued management of physical deconditoning and pending appropriate disposition. Time Spent in Patient Care: 16 - 35 minutes (>than 50% of time spent in counselling and/or direct pt care on unit) . Coding Level of Care Code Acute Environmental Compliance Specialist for g Fwd Exam Comprehensive Diagnoses Compression fracture Acute back pain M54.9 Back pain laterality: unspecified Back pain location: back pain in unspecified location AMS (altered mental status) R41.82 Altered mental status type: unspecified Falls W19.XXXA Encounter type: initial encounter Physical deconditioning R53.81 Multiple myeloma C90.00 Multiple myeloma remission status: not in remission Alzheimer disease G30.9; F02.80 Alzheimer's disease onset: unspecified onset Dementia behavioral disturbance: without behavioral disturbance Hypertension I10 Hypertension type: essential hypertension Hyperlipidemia E78.5 Hyperlipidemia type: unspecified Obstructive sleep apnea G47.33 GERD (gastroesophageal reflux disease) K21.9 Esophagitis presence: esophagitis presence not specified Anemia D64.9 Anemia type: unspecified type COPD (chronic obstructive pulmonary disease) J44.9 COPD type: unspecified COPD
[2019-12-18 04:00] VITALS: BP 102/52; PULSE 82; RESP 18; TEMP 37.1; O2SAT 95
[2019-12-18 08:00] VITALS: BP 106/60; PULSE 92; RESP 18; TEMP 36.8; O2SAT 95
[2019-12-18] MEDS: pantoprazole DR 40 mg Tablet PO (08:19)
[2019-12-18] MEDS: sertraline 100 mg Tablet PO (08:19)
[2019-12-18] MEDS: aspirin 325 mg Tablet PO (08:19)
--- NOTE | 2019-12-18 09:13 | PC.SOCIAL ---
*IMM* Patient received the important message from [employer]. Original is in the chart, copy gave to the patient.
[2019-12-18 11:23] VITALS: BP 99/61; PULSE 74; RESP 18; TEMP 37; O2SAT 95
[2019-12-18 12:50] LABS: ABNORMAL PROTEIN BAND 1 1.6 g/dL (NONE DETECTED); ABNORMAL PROTEIN BAND 2 0.9 g/dL (NONE DETECTED); ALBUMIN 2.4 g/dL (3.8-4.8); ALPHA 1 GLOBULIN 0.4 g/dL (0.2-0.3); ALPHA 2 GLOBULIN 0.9 g/dL (0.5-0.9); BETA 1 GLOBULIN 1.8 g/dL (0.4-0.6); GAMMA GLOBULIN 0.3 g/dL (0.8-1.7); KAPPA LIGHT CHAIN, FREE, SERUM 235.7 mg/L (3.3-19.4); KAPPA/LAMBDA LIGHT CHAINS FREE 39.95 (0.26-1.65); LAMBDA LIGHT CHAIN, FREE, SERU 5.9 mg/L (5.7-26.3)
--- NOTE | 2019-12-18 13:32 | P.DS_ITS ---
Discharge Providers Date of Admission: 12/15/19 00:48 Date of Discharge: December 18, 2019 Attending Provider at Admission: Tadeo Castro MD Attending Provider at Discharge: Socorro Peterson MD Primary Care Provider: JADA Kinney Diagnoses at Discharge Discharge Diagnosis (1) Compression fracture: Status: Acute Problem details: -Noted evidence of acute versus subacute L2 compression fracture, T5 moderate compression fracture on CT scans. No apparent neurological compromise currently. -MRI L-spine: Stable compression fracture of L2 with abnormal marrow signal and concerning for pathologic fracture related to marrow infiltration and tumor, possible additional small lesions in ileum, left renal cysts, cholelithiasis -MRI T-spine: T5 vertebral body compression fracture, abnormal marrow signal in the vertebral body. 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 though no urgent need for this as no neurological impairment, instability; will need to discuss findings with oncology -Pain control as needed (2) Acute back pain: Status: Acute Problem details: -With recent history of recurrent falls and now noted to have evidence of compression fractures on imaging Qualifiers: Back pain location: back pain in unspecified location Back pain laterality: unspecified Qualified Code(s): M54.9 - Dorsalgia, unspecified (3) AMS (altered mental status): Status: Acute Problem details: -No noted acute findings on CT head -Has known underlying Alzheimer's dementia -Noted clinical evidence of dehydration which is likely contributing to altered mental status -No noted infectious etiology; afebrile, no leukocytosis, UA negative for infection, chest x-ray unremarkable for any acute findings -Reorient as needed; seems to wax and wane Qualifiers: Altered mental status type: unspecified Qualified Code(s): R41.82 - Altered mental status, unspecified (4) Falls: Status: Acute Qualifiers: Encounter type: initial encounter Qualified Code(s): W19.XXXA - Unspecified fall, initial encounter (5) Physical deconditioning: Status: Acute (6) Multiple myeloma: Status: Chronic Problem details: -Has known history of IgG kappa multiple myeloma with associated 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 Bourgeois Qualifiers: Multiple myeloma remission status: not in remission Qualified Code(s): C90.00 - Multiple myeloma not having achieved remission (7) Alzheimer disease: Status: Chronic Qualifiers: Alzheimer's disease onset: unspecified onset Dementia behavioral disturbance: without behavioral disturbance Qualified Code(s): G30.9 - Alzheimer's disease, unspecified; F02.80 - Dementia in other diseases classified elsewhere without behavioral disturbance (8) Hypertension: Status: Chronic Problem details: -Vital signs stable Qualifiers: Hypertension type: essential hypertension Qualified Code(s): I10 - Essential (primary) hypertension (9) Hyperlipidemia: Status: Chronic Qualifiers: Hyperlipidemia type: unspecified Qualified Code(s): E78.5 - Hyperlipidemia, unspecified (10) Obstructive sleep apnea: Status: Chronic (11) GERD (gastroesophageal reflux disease): Status: Chronic Qualifiers: Esophagitis presence: esophagitis presence not specified Qualified Code(s): K21.9 - Gastro-esophageal reflux disease without esophagitis (12) Anemia: Status: Chronic Problem details: -Has known history of chronic microcytic anemia related to underlying multiple myeloma -Baseline hemoglobin appears to be 9-11 -Continue to monitor hemoglobin closely Qualifiers: Anemia type: unspecified type Qualified Code(s): D64.9 - Anemia, unspecified (13) COPD (chronic obstructive pulmonary disease): Status: Chronic Problem details: -No indication of acute COPD exacerbation at this time -supplemental oxygen as needed Qualifiers: COPD type: unspecified COPD Qualified Code(s): J44.9 - Chronic obstructive pulmonary disease, unspecified Reason for Visit Reason for Visit: Reason For Visit: Cancer/ams Hospital Course Hospital Course: Patient was admitted to the medical surgical floor and had further work-up done for his presentation of low back pain with underlying multiple myeloma. Imaging included CT and MRI the latter of which shows compression fractures of L2 and T5, likely secondary to his underlying malignancy. He has been following up with Dr. Bourgeois with discussion on potentially initiating oral treatment versus palliative radiation. I called oncology clinic and left a message for Dr. Bourgeois as he is away this week. Compression fractures appear to be stable and patient has no noted neurological deficits at this time. He has been working with physical therapy and occupational therapy with recommendation made for SNF placement due to physical deconditioning, high fall risk and noted underlying dementia. Patient is overall quite frail is at high risk for readmission due to his underlying comorbidities. He will need to continue to follow-up with Dr. Bourgeois as well as his primary care provider. He has been hemodynamically stable, afebrile, tolerating oral intake though appetite has been poor so meals have been supplemented with Ensure should continue on his transition to SNF. Discharge Summary: -Patient to follow-up with his primary care provider within 1 week -Patient to follow-up with Dr. Bourgeois as soon as next available appointment Physical Exam Const: COMMON NORMALS: no apparent distress and oriented x3 GENERAL APPEARANCE: cooperative, comfortable, frail appearing and appears older than stated age NUTRITIONAL APPEARANCE: thin ORIENTATION/CONSCIOUSNESS: Yes awake HENMT: COMMON NORMALS: normocephalic, head/scalp atraumatic, hearing grossly normal bilaterally and moist oral mucous membranes HEAD & SCALP: no rmocephalic and atraumatic Eye: COMMON NORMALS: PERRL, EOMs intact bilaterally and conjunctivae normal CONJUNCTIVA: Yes conjunctivae normal PUPIL: Yes PERRL Neck/C-Spine: COMMON NORMALS: full ROM GENERAL: Yes normal visual inspection and Yes trachea midline Resp: COMMON NORMALS: normal respiratory effort, no retractions, no use of accessory muscles and clear to auscultation bilaterally EFFORT & INSPECTION: Yes able to speak in complete sentences, Yes symmetric chest movement and No tachypneic AUSCULTATION: clear to auscultation bilaterally Cardio: COMMON NORMALS: regular rate, regular rhythm, S1 normal heart sound, S2 normal heart sound and no murmurs RATE: regular rate RHYTHM: regular rhythm HEART SOUNDS: S1 normal and S2 normal GI: COMMON NORMALS: normal to inspection, nondistended, normoactive bowel sounds, soft to palpation and non-tender PALPATION: Yes soft Extremity: COMMON NORMALS: normal to inspection, full ROM, no clubbing, cyanosis or edema and no pedal edema Neuro: COMMON NORMALS: oriented x3, moves all extremities, no focal motor deficits and no sensory deficits noted Psych: COMMON NORMALS: mental status grossly normal, thought process normal, cooperative, affect normal and speech normal SPEECH: Yes normal speech THOUGHT PROCESS: normal thought process Skin: COMMON NORMALS: no rashes or lesions noted, no jaundice, no petechiae and no mottling GENERAL SKIN EXAM: no rashes or lesions noted Discharge Data Data Completed and Pending: Completed Studies During Hospitalization Category Date Time Status CT cervical spin wo con* [id number] Urge nt Cat Scan 12/14/19 23:[address] chest w con* 7 1260 Urgent Cat Scan 12/14/19 23:[address] head wo con* 7 0450 Urgent Cat Scan 12/14/19 22:[address] lumbar spine w o con* [id number] Urgen t Cat Scan 12/14/19 23:[address] thoracic spin wo con* [id number] Urge nt Cat Scan 12/14/19 23:40 Completed XR chest 1V nawaf ble [id number] Stat Exams 12/14/19 20:25 Completed MR lumbar spine w o con* [id number] Routi ne MRI 12/15/19 14:42 Completed MR thoracic spin wo con* [id number] Rout ine MRI 12/15/19 14:42 Completed Pending at discharge Category Date Time Status Dheo-8-Quakrdecpm delfina Stat Lab 12/15/19 02:40 Received Blood Culture Sta t Lab 12/14/19 20:55 Results Immunofixation Se rum Stat Lab 12/15/19 02:40 Received Urine Protein Clarissa ctrop Random Stat Lab 12/15/19 10:41 Results Labs from last 24 hours 12/18/19 12/15/19 12/15/19 04:35 12:10 12:10 Potassium 4.0 Albumin 2.4 L Hkxhn-8-Lkjfvkxkm 0.4 H Cpksb-2-Wzfrvexll 0.9 Mkbb-4-Kbhtosql 1.8 H Xibk-7-Ufrnjfqo 1.0 H Gamma Globulins 0.3 L Abnorm Protein Ban d 1 1.6 H U Abnormal Prot Ba nd 2 0.9 H Pro Electrophoresi s Int See note Free [place] Light C hains 235.7 H Free Lambda Light Chain 5.9 Free [place]/Lambda Ratio 39.95 H Vitals: Last Vital Signs Temp 98.6 F 12/18/19 11:23 Pulse 74 12/18/19 11:23 Resp 18 12/18/19 11:23 BP 99/61 12/18/19 11:23 Pulse Ox 95 12/18/19 11:23 Discharge Plan Discharge Patient Disposition: Xfer SNF Condition: Stable Prescriptions: New oxycodone-acetaminophen 10-325 mg Tablet 1 tab PO Q6H PRN (Reason: Severe Pain (Scale Score 7-10)) Qty: 30 RF: 0 Continued aspirin 325 mg Tablet 325 mg PO DAILY Qty: 30 RF: 0 Zoloft 100 mg tablet 100 mg PO Q24H Qty: 30 RF: 0 omeprazole 40 mg capsule,delayed release(DR/EC) 40 mg PO BID Qty: 30 RF: 0 potassium gluconate 595 mg (99 mg) Tablet 595 mg PO BID Qty: 30 RF: 0 Creon 6,000-19,000 -30,000 unit capsule,delayed release(DR/EC) 1 cap PO TID Qty: 30 RF: 0 Discontinued sertraline 100 mg Tablet 100 mg PO DAILY RF: 0 Discharge Orders: Discharge Order (Routine); Ordered 12/18/19 Ordered By: Socorro Peterson Referrals: Nicky Conner FNP [Primary Care Provider] - 4-7 days (Post hospital discharge follow up) Clifton Bourgeois MD [Hospitalist] - 1 week (Follow up for multiple myeloma, had MRI L- and T-spine done showing likely pathologic compression fractures. ) Discharge Diet: Regular Discharge Activity: As per PT/OT instructions Activity Restrictions/Additional Instructions: -Please continue fall precautions -Please supplement meals with Ensure Discharge Attestations Time Spent in Discharge Care*: greater than 30 min Specific Discharge Activities: Specific discharge activities: educating patient, discussing with pillowcase cutter/social workers/dc planners, documenting/other paperwork and evaluating patient/reviewing data Status at Discharge: Cognitive status at discharge: mildly impaired cognition , Behavioral status at discharge: cooperative , Functional status at discharge: uses cane/walker Overall status at discharge: patient is progressing back to baseline Quality Metrics Clinical Quality Measures During this hospital stay, did patient experience: None Coding Level of Care Code Acute [employer] [facility] Diagnoses Compression fracture Acute back pain M54.9 Back pain location: back pain in unspecified location Back pain laterality: unspecified AMS (altered mental status) R41.82 Altered mental status type: unspecified Falls W19.XXXA Encounter type: initial encounter Physical deconditioning R53.81 Multiple myeloma C90.00 Multiple myeloma remission status: not in remission Alzheimer disease G30.9; F02.80 Alzheimer's disease onset: unspecified onset Dementia behavioral disturbance: without behavioral disturbance Hypertension I10 Hypertension type: essential hypertension Hyperlipidemia E78.5 Hyperlipidemia type: unspecified Obstructive sleep apnea G47.33 GERD (gastroesophageal reflux disease) K21.9 Esophagitis presence: esophagitis presence not specified Anemia D64.9 Anemia type: unspecified type COPD (chronic obstructive pulmonary disease) J44.9 COPD type: unspecified COPD
[2019-12-18 14:02] VITALS: BP 99/61; PULSE 74; RESP 18; TEMP 37; O2SAT 95
[2019-12-18 15:35] LABS: Abnormal Protein Band 1 52 mg/dL (NONE DETECTED); Albumin,Urine Random 3 %; Alpha-1-Globulins Urine Random 1 %; Alpha-2-Globulins Urine Random 5 %; Beta-Globulin,Urine Random 7 %; Gamma Globulin,Urine Random 85 %
[2019-12-22 12:21] LABS: Beta-2-Microglobulin 5.39 mg/L (< OR = 2.51)
== END 2019-12-18 15:32 | disposition skilled nursing facility (03) | DRG 641 ==
LOC: ER 22:46 → MEDSURG 12-15 01:14
PROVIDERS: Admitting Provider Family Medicine; Emergency Provider Emergency Medicine; PCP Nurse Practitioner Family; Visit Provider Family Medicine
DX: E86.0 Dehydration (principal); C90.00 Multiple myeloma not having achieved remission; M48.56XA Collapsed vertebra, not elsewhere classified, lumbar region, initial encounter for fracture; M48.54XA Collapsed vertebra, not elsewhere classified, thoracic region, initial encounter for fracture; D64.9 Anemia, unspecified; G30.9 Alzheimer's disease, unspecified; F02.80 Dementia in other diseases classified elsewhere, unspecified severity, without behavioral disturbance, psychotic disturbance, mood disturbance, and anxiety; K21.9 Gastro-esophageal reflux disease without esophagitis; G47.33 Obstructive sleep apnea (adult) (pediatric); J44.9 Chronic obstructive pulmonary disease, unspecified; E87.5 Hyperkalemia; I10 Essential (primary) hypertension; Z91.81 History of falling; Z79.82 Long term (current) use of aspirin; M19.90 Unspecified osteoarthritis, unspecified site; N18.3 Chronic kidney disease, stage 3 (moderate); I12.9 Hypertensive chronic kidney disease with stage 1 through stage 4 chronic kidney disease, or unspecified chronic kidney disease; N18.9 Chronic kidney disease, unspecified; F17.210 Nicotine dependence, cigarettes, uncomplicated
CPT/HCPCS: 12345; 36415; 70450; 71045; 71260; 72125; 72128; 72131; 72146; 72148; 80048; 80053; 81001; 82009; 82232; 82607; 82728; 82746; 83605; 83690; 83735; 83883; 84132; 84145; 84155; 84165; 84260; 84484; 85025; 85045; 85651; 86140; 87040; 93005; 96365; 97116; 97161; 97166; 97530; 97535; 99283; 99284; J2543; J7030; Q9967